=== PATIENT | male | born 1945 | race Caucasian/White ===

== ENCOUNTER 2018-10-09 20:30 | Outpatient (CLI) | payer MEDICARE | END 2018-10-09 20:31 | disposition home or self-care (01) | LOC: SLEEPLAB 20:30 | PROVIDERS: ATTEND Internal Medicine | DX: G47.33 Obstructive sleep apnea (adult) (pediatric) (principal); G47.61 Periodic limb movement disorder | CPT/HCPCS: 95811 ==

== ENCOUNTER 2018-11-07 22:35 | Observation (INO) | payer MEDICARE, OTHER ==
[2018-11-07 23:06] LABS: #Basophils 0.1 thou/uL (0.0-0.2); #Eosinphils 0.1 thou/uL (0.0-0.7); #Monocytes 0.8 thou/uL (0.11-0.59); #Neutrophils 4.8 thou/uL (1.40-6.50); %Basophils 0.9 % (0.0-1.0); %Eosinophils 1.2 % (0.0-10.0); %Lymphocytes 26.2 % (21.0-51.0); %Neutrophils 61.7 % (42.0-75.0); Hemoglobin 15.2 g/dL (14.0-18.0); Mean Platelet Volume 8.7 fL (7.4-10.4); Platelet Count 209 thou/uL (130-400); RBC Distribution Width 12.4 % (11.5-14.5); Red Blood Cell (RBC) Count 4.73 mill/uL (4.70-6.10); White Blood Cell (WBC) Count 7.7 thou/uL (4.8-10.8)
[2018-11-07 23:29] LABS: ALT (SGPT) 20 U/L (8-55); AST (SGOT) 27 U/L (5-34); Alkaline Phosphatase 53 U/L (40-150); Anion Gap 13 mmol/L (10-20); BUN (Urea Nitrogen) 13 mg/dL (8.4-25.7); Calc. Creatinine Clearance 0 mL/min (70-130); Carbon Dioxide 25 mmol/L (23-31); Chloride 105 mmol/L (98-107); Estimated GFR-MDRD 68; Globulin 2.7 g/dL (2.4-3.5); Glucose 99 mg/dL (83-110); Potassium 4.5 mmol/L (3.5-5.1); Protein, Total 6.7 g/dL (5.8-8.1); Sodium 138 mmol/L (136-145)
[2018-11-08] MEDS ORDERED: Acetaminophen 325 MG TAB PO PRN (02:29)
[2018-11-08] MEDS ORDERED: Zolpidem Tartrate 5 MG TAB PO PRN (02:29)
[2018-11-08 02:56] LABS: Troponin I Less than 0.010 ng/mL (< 0.028)
[2018-11-08 05:30] LABS: Anion Gap 9 mmol/L (10-20); BUN (Urea Nitrogen) 15 mg/dL (8.4-25.7); Calc. Creatinine Clearance 0 mL/min (70-130); Calcium 8.4 mg/dL (7.8-10.44); Carbon Dioxide 25 mmol/L (23-31); Chloride 106 mmol/L (98-107); Estimated GFR-MDRD 83; Glucose 91 mg/dL (83-110); Potassium 3.9 mmol/L (3.5-5.1); Sodium 136 mmol/L (136-145)
[2018-11-08 05:32] LABS: Hemoglobin 13.9 g/dL (14.0-18.0); Hypochromia SLIGHT = 6-15 cells (100X) (0-5/hpf); Lymphocytes 25 % (21-51); MDiff Complete? YES; Mean Corpuscular HGB CONC 33.9 g/dL (32.0-36.0); Mean Corpuscular Hemoglobin 32.8 pg (27.0-31.0); Mean Corpuscular Volume 96.7 fL (78.0-98.0); Mean Platelet Volume 8.9 fL (7.4-10.4); Monocytes 3 % (0-10); Neutrophil 61 % (42-75); Platelet Count 188 thou/uL (130-400); Platelet Morphology Comment Appears Adequate; RBC Distribution Width 12.2 % (11.5-14.5); Reactive Lymphocytes 11 % (0-10); Red Blood Cell (RBC) Count 4.25 mill/uL (4.70-6.10)
[2018-11-08 05:33] LABS: Troponin I Less than 0.010 ng/mL (< 0.028)
[2018-11-08] MEDS ORDERED: Famotidine 20 MG TAB ONE (07:38)
[2018-11-08] MEDS ORDERED: Aspirin Chewable 81 MG TAB ONE (07:38)
[2018-11-08] MEDS ORDERED: Tamsulosin HCl 0.4 MG CAP PO SCH (09:00)
[2018-11-08] MEDS ORDERED: Famotidine/PF 20 mg/2ml Vial SLOW IVP SCH (09:00)
[2018-11-08] MEDS ORDERED: Aspirin 81 mg Enteric Coated Tablet PO SCH (09:00)
[2018-11-08] MEDS ORDERED: Famotidine 20 MG TAB PO SCH (09:00)
[2018-11-08] MEDS ORDERED: Multivit, Therapeutic 1 TAB PO SCH (09:00)
[2018-11-08 11:23] VITALS: BP 161/98; TEMP 97.7
--- NOTE | 2018-11-08 20:57 | HP ---
CHIEF COMPLAINT: Transfer for atrial flutter. HISTORY OF PRESENT ILLNESS: This is a 72-year-old male with past medical history of enlarged prostate, presenting with palpitations and shortness of breath. Per the patient, he has been having history of palpitations and dizziness in the past. This happens every once in a while within the year. He sees Dr. Schuster who is his rod tape operator and they had been trying to find out what is causing his palpitations and shortness of breath. Per the patient, he was advised that any time when he starts feeling dizziness and palpitations, he should go to the ED to be evaluated, so that he can be able to get an EKG to capture the rhythm. So in the last few hours prior to his admission, the patient was having dizziness, shortness of breath, and therefore he went to [facility] where EKG was done and showed atrial flutter. At that point, the patient was transferred to the hospital to be evaluated. In the hospital, the patient's EKG is sinus. At this point, the patient states that he does not have any fever, chills, nausea, vomiting, headaches, chest pain, palpitation, abdominal pain, nausea, vomiting, constipation, or diarrhea. REVIEW OF SYSTEMS: All systems were reviewed and are negative. PAST MEDICAL HISTORY: Enlarged prostate. FAMILY HISTORY: Reviewed and noncontributory to this visit. PAST SURGICAL HISTORY: Back surgery, sinus surgery, urethral reconstruction, right knee repair, and carpal tunnel surgery. PSYCHIATRIC HISTORY: The patient does not have any psych history. SOCIAL HISTORY: The patient drinks occasionally. The patient denies any illicit drug use and the patient denies any smoking history. The patient lives at home with the . ALLERGIES: THE PATIENT IS ALLERGIC TO CIPROFLOXACIN AND SULFONAMIDES. CURRENT MEDICATIONS: The patient takes Flomax 0.4 mg and aspirin 81 mg. PHYSICAL EXAMINATION: VITAL SIGNS: The patient's blood pressure is 123/102, pulse of 67, respiratory rate of 18, temperature of 97.9, and oxygen saturation of 97% on room air. GENERAL: The patient is alert and oriented x3, lying in bed comfortably. Does not appear to be in any acute distress. HEENT: Normocephalic, atraumatic. Pupils are equally round and reactive to light. Extraocular movements are intact. No scleral icterus. No conjunctival pallor. NECK: Full range of motion. Trachea is midline. LUNGS: Clear to auscultation bilaterally. No wheezing, no rales, no rhonchi appreciated. CARDIAC: Positive S1 and S2. Regular rate and rhythm. No murmurs, no gallops, no rubs appreciated. ABDOMEN: Soft, nontender, and nondistended. Positive bowel sounds in all quadrants. EXTREMITIES: The patient has 5/5 upper extremity strength and 5/5 lower extremity strength. No edema noted. NEUROLOGIC: Cranial nerves 2 through 12 grossly intact. No neurologic deficits noted. SKIN: Warm, dry, and intact. PSYCH: Normal affect. Alert and oriented x3. DIAGNOSTIC DATA: EKG shows normal sinus rhythm with a rate of 66. LABORATORY DATA: WBC 7.7, hemoglobin is 15.2, hematocrit is 45.9, and platelet count is 209. Sodium is 138, potassium is 4.5, chloride is 105, carbon dioxide of 25, BUN is 13, creatinine is 1.07. Troponin is less than 0.010 x 3. TSH is 1.7. ASSESSMENT AND PLAN: This is a 72-year-old male being admitted for : 1. Palpitations and shortness of breath, likely due to arrhythmias. The patient was found to be in flutter when the patient went to [facility]. The patient has been transferred here to be further evaluated by rod tape operator. At this point, we have consulted Cardiology. We will follow up with their recommendations. We will continue the patient on aspirin. We will continue the patient on home medications. 2. BPH. We will continue the patient on Flomax. 3. Deep venous thrombosis and gastrointestinal prophylaxis. Job ID: [id number]
--- NOTE | 2018-11-10 10:33 | DIS ---
DATE OF ADMISSION: 11/07/2018 DATE OF DISCHARGE: 11/08/2018 PRIMARY CARE PHYSICIAN: Dr. Luciana Vigil. PRIMARY PERIODONTAL ASSISTANT: Dr. Schuster. DISCHARGE DIAGNOSES: 1. One episode of atrial flutter, resolved with one dose of IV Cardizem. 2. History of benign prostatic hyperplasia. DISCHARGE MEDICATIONS: 1. Lopressor 12.5 mg p.o. b.i.d. 2. Aspirin 81 mg daily. 3. Resume home medication of Flomax daily. HISTORY OF PRESENT ILLNESS AND SHORT HOSPITAL COURSE: Mr. Treviño was admitted earlier this morning by my colleague, Dr. Mcfarlane. H and P is not available yet as it has not been transcribed. In brief, he was admitted for palpitation and was found to have an episode of atrial flutter. He received one dose of Cardizem, which converted him to sinus rhythm. He was monitored several hours and was admitted initially under observation status for same. He was seen and examined by myself in the emergency room while he was on ER hernandez waiting for room assignment. His heart rate has remained in the 60s to 70s with blood pressure systolic in the 160s, diastolic in 90s. Echocardiogram has been done and at this time, the patient does not want to stay in the hospital anymore. They are in close followup with his own green chain offbearer, Dr. Schuster. They will see Dr. Schuster a day from tomorrow as an outpatient appointment. At this time on my examination, he is hemodynamically stable and is maintaining sinus rhythm and will be discharged. He has undergone extensive evaluation including a CT angio of the chest, which was negative for PE. I have briefly discussed this case briefly with the director transportation, Dr. Dozier over the phone and have referred him to electrophysiology as an outpatient. He was also given prescription for Lopressor twice a day at low dose and he is instructed to monitor his heart rate and blood pressure for the next few days while he is on this medicine. He will see Dr. Schuster in the next 48 hours or will come back to the emergency room if his symptoms reoccurred. He is also instructed to start taking a baby aspirin on a daily basis. His CHADS VASC 2 score is 1 based on his age, but otherwise he has no other risk factors on the scoring scale. He will be discharged. Please see admission history and physical once available. Serial cardiac enzymes were trended and were negative x3. Job ID: [id number]
== END 2018-11-08 12:37 | disposition home or self-care (01) ==
LOC: ERS 22:35 → ERHOLD 23:29
PROVIDERS: ADMIT Internal Medicine; ATTEND Internal Medicine
DX: I48.92 Unspecified atrial flutter (principal); N40.0 Benign prostatic hyperplasia without lower urinary tract symptoms; Z79.82 Long term (current) use of aspirin; Z79.899 Other long term (current) drug therapy; Z88.1 Allergy status to other antibiotic agents; Z88.2 Allergy status to sulfonamides
CPT/HCPCS: 80048; 84484 ×3; 85025; 93005; 93306; 99285; G0378; 36415; 84443; 94760

== ENCOUNTER 2018-12-08 09:36 | Outpatient (CLI) | payer MEDICARE ==
[2018-12-08] MEDS ORDERED: Gadobenate Dimeglumine 529 MG/1 ML (20ML VIAL) ONE (13:17)
--- NOTE | 2018-12-08 16:06 | MRI ---
PRE AND POSTCONTARST ENHANCED MRI IMAGES LUMBAR SPINE: HISTORY: Spondylosis without myelopathy. Bilateral leg pain. FINDINGS: Multiplanar, multisequence pre- and postcontrast enhanced MRI images lumbar spine performed. For the purposes of this dictation, the last freely mobile vertebral body will be considered to be th e L5 vertebral body. All other vertebral bodies are numbered according to this. The patient has a transitional S1 vertebral body. T12-L1: Unremarkable. L1-2: Disk desiccation is seen. There is a mild broad-based disk bulge with bilateral facet and lig amentum flavum hypertrophy. This results in minimal central and lateral recess stenosis. Mild bilat eral neural foraminal narrowing seen. L2-3: Disk desiccation was seen. There is a broad-based disk bulge with bilateral facet hypertrophy . This results in a moderate degree of central and lateral recess stenosis. Previously noted right L2-3 paracentral disk protrusion is less pronounced on today's exam. The right L2-3 lateral recess a lso demonstrates less severe stenosis compared to the previous exam. L3-4: Disk desiccation is seen. There is a broad-based disk bulge with bilateral facet hypertrophy. Minimal central and lateral recess stenosis seen. There is moderate bilateral neural foraminal amaury rowing seen due to facet hypertrophy. L4-5: Disk desiccation is seen. There is a broad-based disk bulge with bilateral facet hypertrophy. There are some adhesions of the intrathecal nerve roots concerning for intrathecal fibrosis. There is moderate bilateral neural foraminal narrowing seen. There is an annular fissure seen in the post erior aspect of the annulus fibrosis at L4-5. L5-S1: Disk desiccation is seen. There is a broad-based disk bulge with bilateral facet hypertrophy . Central disk protrusion is unchanged since the previous comparison exam. There is moderate to sev ere bilateral neural foraminal narrowing seen. IMPRESSION: Decreased right L2-3 paracentral disk protrusion. No other significant interval change is seen. Int rathecal adhesions compatible with intrathecal fibrosis is present. POS: REBECCA
== END 2018-12-08 09:37 | disposition home or self-care (01) ==
LOC: TBSIIMAG 09:36
PROVIDERS: ATTEND Neurological Surgery
DX: M47.816 Spondylosis without myelopathy or radiculopathy, lumbar region (principal); M51.26 Other intervertebral disc displacement, lumbar region
CPT/HCPCS: 72158; A9577

== ENCOUNTER 2019-03-02 10:01 | Outpatient (CLI) | payer MEDICARE ==
--- NOTE | 2019-03-02 12:18 | RAD ---
CERVICAL SPINE 3 VIEWS: Date: 03/02/19 HISTORY: M50.2, cervical disc disorder, chronic neck pain with numbness down both arms for years. FINDINGS: Multilevel disc osteophytosis changes are noted with facet arthrosis changes. No abnormal translation between flexion and extension. No prevertebral soft tissue swelling. IMPRESSION: Cervical spondylosis. No abnormal translation. POS: C
--- NOTE | 2019-03-02 13:01 | MRI ---
MRI cervical spine without contrast: 03/02/2019 COMPARISON: 11/08/2016 HISTORY: Chronic neck pain with bilateral upper extremity numbness/radiculopathy TECHNIQUE: Multiplanar multisequence MR imaging of the cervical spine obtained without contrast FINDINGS: The sagittal STIR imaging demonstrates increased signal intensity within the C4-5 intervert ebral disc, new when compared to the prior exam. Adjacent endplates are well-defined and there is no edema within the adjacent vertebral bodies. Findings suggest extensive annular tear with associate d edema involving the peripheral and central aspect of the intervertebral disc. Cervical vertebral body height and alignment appears unremarkable. C2-3: Mild bilateral facet and uncovertebral osteophyte formation. No significant central canal or ne ural foraminal stenosis. No significant interval change. C3-4: There is disc space narrowing and disc desiccation with mild disc bulge and small left paracent ral disc osteophyte complex. Bilateral facet and uncovertebral osteophyte formation, left greater than right, not significantly changed. Stable mild central canal stenosis, moderate/severe left neura l foraminal stenosis, and mild/moderate right neural foraminal stenosis. C4-5: Disc space narrowing and disc bulge. Effacement of ventral thecal sac with moderate central can al stenosis. Facet and uncovertebral osteophyte formation noted bilaterally, left greater than right. Mild right and moderate left neural foraminal stenosis, not significantly changed. C5-6: Disc space narrowing and disc desiccation with disc bulge effacing the ventral thecal sac and a butting the ventral aspect of the cord with stable moderate central canal stenosis. Bilateral facet and uncovertebral osteophyte formation, right greater than left. Moderate/severe right neural foramin al stenosis and moderate left neural foraminal stenosis. C6-7: There is disc space narrowing and disc desiccation with anterior osteophyte formation and mild disc bulge. This partially effaces the ventral thecal sac and causes mild central canal stenosis. Bilateral facet and uncovertebral osteophyte formation with moderate bilateral neural foraminal steno sis, not significantly changed. C7-T1: There is disc space narrowing, disc desiccation, and mild disc bulge with no significant centr al canal stenosis. Bilateral facet and uncovertebral osteophyte formation with mild bilateral neural foraminal stenosis. No focal area of abnormal signal intensity is identified within the cervical cord. No suspicious foca l osseous marrow abnormality. IMPRESSION: Significant multilevel cervical spine degenerative change as detailed above.
--- NOTE | 2019-03-02 13:32 | MRI ---
MR OF THE LEFT KNEE WITHOUT CONTRAST INDICATION: Left knee pain after being kicked in the left knee by cow TECHNIQUE: Axial and coronal PD fat sat, sagittal T2 fat sat, sagittal PD turbo spin echo and T1 rudy nal images were obtained of the left knee. COMPARISON: None. FINDINGS: Joint effusion: Mild-sized joint effusion Semimembranosus-medial gastrocnemius popliteal cyst: Small sized Faust's cyst. Ligaments: There is a grade 2 MCL sprain involving the anterior aspect of the proximal MCL. There is mucoid degeneration of the ACL. The PCL and LCLC are intact. Extensor mechanism: Intact. Menisci: There is a horizontally oriented tear involving the body posterior horn of the lateral menis cus. There is a horizontally oriented tear involving the body of the medial meniscus. Articular cartilage: There is mild chondrosis involving the lateral femoral tibial compartment. Small suspected full-thickness articular cartilage fissure is seen involving the posterior aspect of the lateral, measuring 1.3 mm on image 22 of series 8. There is a 1 mm full-thickness articular cartilage fissure involving the lateral tibial plateau on image 21 of series 7. There is a partial-thickness articular cartilage fissure involving the lateral patellar facet measuring 2.7 mm on image 19 of seri es 3. Osseous structures: There are small marginal osteophytes affecting the major compartments of the left knee. Popliteus and IT band: Normal. IMPRESSION: 1. Mild osteoarthrosis of the left knee. 2. Grade 2 proximal MCL sprain 3. Medial and lateral meniscal tears.
== END 2019-03-02 10:02 | disposition home or self-care (01) ==
LOC: BICMRI 10:01 → SCSMRI 10:02
PROVIDERS: ATTEND Neurological Surgery
DX: M25.562 Pain in left knee (principal); M47.12 Other spondylosis with myelopathy, cervical region; M50.021 Cervical disc disorder at C4-C5 level with myelopathy; M17.12 Unilateral primary osteoarthritis, left knee; S83.412A Sprain of medial collateral ligament of left knee, initial encounter; S83.242A Other tear of medial meniscus, current injury, left knee, initial encounter; S83.282A Other tear of lateral meniscus, current injury, left knee, initial encounter
CPT/HCPCS: 72040; 72141

== ENCOUNTER 2019-06-16 09:25 | Outpatient (CLI) | payer MEDICARE ==
[2019-06-16 11:21] LABS: Hemoglobin 15.3 g/dL (14.0-18.0); Mean Corpuscular HGB CONC 33.4 g/dL (32.0-36.0); Mean Corpuscular Volume 95.7 fL (78.0-98.0); Mean Platelet Volume 9.3 fL (7.4-10.4); Platelet Count 159 thou/uL (130-400); RBC Distribution Width 11.8 % (11.5-14.5); Red Blood Cell (RBC) Count 4.78 mill/uL (4.70-6.10); White Blood Cell (WBC) Count 6.1 thou/uL (4.8-10.8)
[2019-06-16 11:26] LABS: PTT 31.5 SEC (22.9-36.1)
== END 2019-06-16 09:26 | disposition home or self-care (01) ==
LOC: LABBT 09:25
PROVIDERS: ATTEND Neurological Surgery
DX: Z01.818 Encounter for other preprocedural examination (principal); M48.02 Spinal stenosis, cervical region; G95.9 Disease of spinal cord, unspecified
CPT/HCPCS: 85027; 85610; 85730; 93005; 93010

== ENCOUNTER 2019-06-19 05:49 | Inpatient (IN) | payer MEDICARE ==
--- NOTE | 2019-06-17 16:59 | HP ---
HISTORY OF PRESENT ILLNESS: Mr. Treviño is back in our office. He is a 73-year-old male. He would like to discuss his lumbar and cervical spine at this time. He does get numb hands and imbalance. He does not get much radicular pain in his arms at this time. He is having an ablation and is wanting to get off was the time to do this. He is in sinus rhythm and doing well. His feet have symmetric burning and numbness, but this is not changing much. REVIEW OF SYSTEMS: A 10-point review of systems has been completed and is negative other than stated in the above HPI. PAST MEDICAL HISTORY: Allergies, reflux, bladder tumors, and benign lumbar pain. ALLERGIES: LEVAQUIN, SULFA, AND CIPRO. PAST SURGICAL HISTORY: Urethral reconstruction, lumbar spine, septoplasty, tonsils and adenoids, right meniscectomy. FAMILY HISTORY: Father was , at 88. Mother is alive, currently 97. SOCIAL HISTORY: The patient is a nonsmoker. Denies alcohol or drug use. PHYSICAL EXAMINATION: CONSTITUTIONAL: The patient is alert and oriented x3. RESPIRATIONS: Normal work of breathing on room air. NEUROLOGIC: Gait and station, mild imbalance in tandem gait. Motor exam, no new weakness. Normal strength in deltoids, biceps, triceps, wrist extensors, finger extensions, and finger intrinsics. Sensory exam, left middle finger paresthesia, median side. Tinel's, left wrist. Carpal tunnel scar on the right wrist. Reflex exam; knee jerks normal, symmetric. No clonus. IMAGING DATA: MRI cervical spine stenosis at C3-C4, C4-C5, C5-C6, C6-C7. X-rays, no instability. ASSESSMENT AND PLAN: Cervical spinal disorder, stenosis with myelopathy. Dr. Londono has offered surgery, posterior laminectomy C3 through C7 without fusion. The patient states that he understands the risks and is willing to proceed with surgery. Job ID: [id number]
[2019-06-19] MEDS ORDERED: Thrombin 5000 UNITS/5 ML VIAL ONE (06:18)
[2019-06-19] MEDS ORDERED: Bupivacaine HCl 0.5%/Epinephrine 1:200,000/PF 30 ml Vial ONE (06:18)
[2019-06-19] MEDS ORDERED: Sodium Chloride 0.9% 10 ML ONE ×2 (06:18→08:28)
[2019-06-19] MEDS ORDERED: Bacitracin Zinc Ointment 30 gm TUBE ONE (06:23)
[2019-06-19] MEDS ORDERED: Famotidine/PF 20 mg/2ml Vial ONE (06:52)
[2019-06-19] MEDS ORDERED: Fentanyl 100 MCG/2 ML VIAL ONE ×3 (07:00→10:22)
[2019-06-19] MEDS ORDERED: TESTOSTERONE TOP SCH (09:00)
[2019-06-19] MEDS ORDERED: Promethazine HCl 25 MG/ML VIAL IM PRN ×2 (09:30→10:10)
[2019-06-19] MEDS ORDERED: PACU-Morphine 4MG/ML VIAL SLOW IVP PRN (09:30)
[2019-06-19] MEDS ORDERED: Promethazine HCl 25 MG/ML VIAL SLOW IVP PRN (09:30)
[2019-06-19] MEDS ORDERED: Meperidine HCl/PF 25 MG/ML VIAL SLOW IVP PRN (09:30)
[2019-06-19] MEDS ORDERED: Acetaminophen/Codeine 30-300mg Tablet PO PRN (10:10)
[2019-06-19] MEDS ORDERED: diphenhydrAMINE 50 MG/ML VIAL IVP PRN (10:10)
[2019-06-19] MEDS ORDERED: Mag-Al 1200 mg/1200 mg/30 ML UDCUP PO PRN (10:10)
[2019-06-19] MEDS ORDERED: Acetaminophen 325 MG TAB PO PRN (10:10)
[2019-06-19] MEDS ORDERED: Promethazine 25 MG TAB PO PRN (10:10)
[2019-06-19] MEDS ORDERED: Milk Of Magnesia 30 ML UDCUP PO PRN (10:10)
[2019-06-19] MEDS ORDERED: Morphine 2 MG/ML SYRINGE SLOW IVP PRN (10:10)
[2019-06-19] MEDS ORDERED: Prochlorperazine 10 MG/2 ML VIAL IM PRN (10:10)
[2019-06-19] MEDS ORDERED: diphenhydrAMINE 25 MG CAP PO PRN (10:10)
[2019-06-19] MEDS ORDERED: Ondansetron PF 4 MG/2 ML Vial IVP PRN (10:10)
[2019-06-19] MEDS ORDERED: HYDROmorphone 0.5 MG/0.5 ML SYRINGE ONE (10:22)
[2019-06-19] MEDS ORDERED: Morphine 4 MG/ML VIAL ONE (10:31)
[2019-06-19] MEDS ORDERED: Morphine 2 MG/ML SYRINGE ONE (10:57)
[2019-06-19] MEDS: Sodium Chloride 0.9% 1,000 ML IV SCH (13:32)
[2019-06-19] MEDS: tiZANidine HCl 4 MG TAB PO PRN ×2 (13:40→19:28)
[2019-06-19] MEDS: Acetaminophen/Codeine 30-300mg Tablet PO PRN ×3 (13:41→22:03)
[2019-06-19] MEDS: CEFAZOLIN 2 GM in Premix Bag 1 BAG IVPB SCH ×2 (15:58→22:04)
--- NOTE | 2019-06-19 16:01 | OP ---
DATE OF PROCEDURE: 06/19/2019 BLIND HANGER: Marely Valencia PA-C. PREOPERATIVE INDICATION: Prevent neurological deterioration. PREOPERATIVE DIAGNOSIS: Multilevel cervical stenosis with myelopathy. POSTOPERATIVE DIAGNOSIS: Multilevel cervical stenosis with myelopathy. OPERATIVE PROCEDURE: Decompressive laminectomy with some medial facetectomy and foraminotomy; C3, C4, C5, C6, C7. PREOPERATIVE MEDICATION: Ancef 2 g IV. DRAIN NUMBER: Zero. DRAIN TYPE: None. DESCRIPTION OF PROCEDURE: The patient was brought to the operating room. General endotracheal anesthesia was induced. The patient was carefully positioned prone with his head immobilized by Villasenor pin and evp head of [employer] experience strategy and his chest and hips supported by gel-filled chest rolls. A lateral fluoro radiograph was used to plan our incision. The back of the neck was sterilely prepped and draped. We opened the midline incision with a 10 blade knife and controlled bleeding with bipolar and monopolar cautery. We used monopolar cautery to dissect to the ligamentum nuchae. We incised this ligament in the midline and reflected the paraspinal muscles off the spinous process and lamina of C3, C4, C5, C6, and C7. A self-retaining retractor was placed and a lateral fluoro radiograph confirmed the levels upon which we were operating. We brought a high-speed drill into the field. Using a 5 mm jenny bur, we thinned the lamina on each side of C3, C4, C5, C6, and the superior portion of C7. Using a 2 mm Kerrison rongeur, we the lamina from the lateral mass on the left and the right and removed all of the lamina as a single unit. We controlled epidural bleeding with gentle bipolar cautery. Using 2 mm Kerrison rongeur, we removed the superior 7 mm of the C7 lamina. We waxed all the bone edges. Using Kerrison rongeurs, we widened our laminectomy defect until we were lateral to the dura on both sides. I placed a micro ball probe out each neural foramen and decompressed as necessary. We controlled epidural bleeding with gentle bipolar cautery and small pledgets of Gelfoam. Hemostasis was excellent thereafter. We infused local anesthetic in the paraspinal muscles. We irrigated copiously with bacitracin irrigation. We closed the wound in anatomical layers. We applied a sterile dressing. This was a clean case, no contamination. Job ID: [id number]
[2019-06-19] MEDS ORDERED: PHENYLEPHRINE-NS 100 MCG/ML 10 ML SYRINGE ONE (16:42)
[2019-06-19] MEDS ORDERED: Rocuronium Bromide 10 MG/ML (10ML VIAL) ONE (16:42)
[2019-06-19] MEDS ORDERED: Ketorolac Tromethamine 30 MG/ML VIAL ONE (16:42)
[2019-06-19] MEDS ORDERED: Glycopyrrolate 0.2 MG/ML 5 ML SYRINGE ONE (16:42)
[2019-06-19] MEDS ORDERED: PROPOFOL 200 MG/20 ML VIAL ONE (16:42)
[2019-06-19] MEDS ORDERED: Dexamethasone 20 MG/5 ML VIAL ONE (16:42)
[2019-06-19] MEDS ORDERED: Lidocaine 1% PF 5 ML VIAL ONE (16:42)
[2019-06-19] MEDS ORDERED: Ondansetron PF 4 MG/2 ML Vial ONE (16:42)
[2019-06-19] MEDS ORDERED: ePHEDrine 50 MG/ML VIAL ONE (16:42)
[2019-06-19] MEDS ORDERED: Lidocaine 2% 11 ML SYR TOP SCH (20:15)
[2019-06-19] MEDS ORDERED: traMADol HCl 50 MG TAB PO PRN (21:44)
[2019-06-19] MEDS: Famotidine 20 MG TAB PO SCH (22:03)
[2019-06-19] MEDS: Cyclobenzaprine 10 MG TAB PO PRN (22:03)
[2019-06-19] MEDS: Morphine 4 MG/ML VIAL SLOW IVP PRN (22:12)
[2019-06-19] MEDS: traMADol HCl 50 MG TAB PO PRN (23:14)
[2019-06-20] MEDS: Sodium Chloride 0.9% 1,000 ML IV SCH ×2 (00:25→17:53)
[2019-06-20] MEDS: traMADol HCl 50 MG TAB PO PRN ×3 (03:03→14:00)
[2019-06-20] MEDS: Cyclobenzaprine 10 MG TAB PO PRN ×3 (03:29→19:31)
[2019-06-20] MEDS: Morphine 4 MG/ML VIAL SLOW IVP PRN ×4 (03:30→13:59)
--- NOTE | 2019-06-20 08:06 | PRG ---
DATE OF SERVICE: 06/20/2019 I saw Mr. Treviño one day after his C3-C7 decompressive laminectomy. He attempted to get out of bed yesterday. He has had severe spasm and numbness in his extremities, and he had remained in bed. Overnight, his vitals have been stable and he is feeling better this morning. His spasm is under relatively good control when I am seeing him now. He has good intrinsic hand strength in both upper extremities and I do not find any new deficits. I asked Mr. Treviño to continue mobilization. It is going to be very important that he sits for an hour or so before he tries to stand, and that he stands for a few minutes before he tries to walk, and that all of this is done with assistance. He may be one of the patient's were autoregulation in the cervical spinal cord has been affected by chronic compression, and that any drops in blood pressure will be manifested as neurological symptoms on changing position. The patient's usually get over this within a day or two from surgery, but he should have observation during this period. We will consult Physical Therapy. If he is a candidate for inpatient rehabilitation, he might be able to be transferred there, but I think he is going to be markedly better today than yesterday. Job ID: [id number] MTDD
[2019-06-20] MEDS ORDERED: Tamsulosin HCl 0.4 MG CAP PO SCH ×2 (09:00)
[2019-06-20] MEDS: Famotidine 20 MG TAB PO SCH ×2 (09:14→19:31)
[2019-06-20] MEDS: Baclofen 10 MG TAB PO PRN (13:02)
[2019-06-20] MEDS ORDERED: diphenhydrAMINE 50 MG/ML VIAL IVP PRN (15:27)
[2019-06-20] MEDS ORDERED: Naloxone HCl 0.4 mg/ml Vial IV PRN (15:27)
[2019-06-20] MEDS ORDERED: Promethazine HCl 25 MG/ML VIAL IM PRN (15:27)
[2019-06-20] MEDS ORDERED: Ondansetron PF 4 MG/2 ML Vial IVP PRN (15:27)
[2019-06-20] MEDS ORDERED: Zolpidem Tartrate 5 MG TAB PO PRN (15:27)
[2019-06-20] MEDS ORDERED: diphenhydrAMINE 25 MG CAP PO PRN (15:27)
[2019-06-20] MEDS ORDERED: diphenhydrAMINE 50 MG/ML VIAL IM PRN (15:27)
[2019-06-20] MEDS ORDERED: Communication Order-Pharmacy FS SCH (15:30)
[2019-06-20] MEDS: Morphine 4 MG/ML VIAL ONE ×2 (17:05→17:12)
[2019-06-20] MEDS: fentaNYL Citrate/PF 2,000 MCG in Sodium Chloride 0.9% 60 ML IV PRN (17:10)
[2019-06-20] MEDS ORDERED: Morphine 4 MG/ML VIAL SLOW IVP SCH (17:45)
[2019-06-20] MEDS: Cefprozil 250 MG TAB PO SCH (19:31)
[2019-06-20] MEDS: Finasteride 5 MG TAB PO SCH (19:31)
[2019-06-20] MEDS: Tamsulosin HCl 0.4 MG CAP PO SCH (19:31)
[2019-06-20] MEDS ORDERED: CEFPROZIL 500 MG PO SCH (21:00)
--- NOTE | 2019-06-20 22:12 | CON ---
DATE OF CONSULTATION: CHIEF COMPLAINT: 1. Postoperative urinary retention following cervical posterior laminectomy. 2. History of benign prostatic hypertrophy with obstruction. 3. History of urethral stricture disease, status post urethroplasty by Dr. Peter Azar, [facility]. HISTORY OF PRESENT ILLNESS: Mr. 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 Ansley Londono. The patient is in the postoperative state at this point. I was consulted overnight due to urinary retention in the postoperative state. I did direct nursing staff to place a 16-Kazakh coude catheter with Lidoject lubricant and this went uneventfully with placement of a Solano catheter and return of about 1500 mL of urine. There has been no gross bleeding overnight. The patient is not having any other difficulties. The patient self reports a longstanding history of benign prostatic hypertrophy issues as well as his urethral stricture disease history. He has noticed some slowing of his stream over the last few months and he is on Flomax alone for treatment at the present time. The patient is complaining of severe neck pain, for which he has not received adequate pain relief by his report. My understanding is a FLUE BLOWER pump is in process and I am going to go ahead and order a 4 mg dose of morphine for him for that problem. REVIEW OF SYSTEMS: I was able to get a limited review of systems from the patient primarily regarding his urinary system due to his pain issues. I did not completely address the review of systems due to his difficulty with pain. The patient finds talking difficult with his severe neck pain. PAST MEDICAL HISTORY: 1. Urethral stricture disease. 2. Prostatic hyperplasia with obstruction. 3. Benign lumbar pain. ALLERGIES: THE PATIENT REPORTS ALLERGIES TO LEVAQUIN, CIPRO AND OTHER FLUOROQUINOLONES WELL SULFA BASED DRUGS. PAST SURGICAL HISTORY: 1. Urethroplasty. 2. Lumbar spine surgery. 3. Septoplasty. 4. Tonsillectomy and adenoids. 5. Right meniscectomy. FAMILY MEDICAL HISTORY: The patient's father is passing away at age 88. The patient's mother is alive, currently age 97. 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 He is a nonsmoker. He denies alcohol or drug use. His daughter is a principal of [employer] in [place]. PHYSICAL EXAMINATION: VITAL SIGNS: The patient's current temperature is 98.1, pulse 85, respirations 16, O2 saturation on room air is 96%, blood pressure is 137/67. GENERAL: This is an awake, alert, white male, who appears to be in some pain. NECK: He is not turning his head or neck at the present time due to what he reports are spasms in his neck. LUNGS: Clear to auscultation bilaterally. CARDIAC: There is a regular rate and rhythm without murmur, rub, or gallop. ABDOMEN: Soft, moderately obese, and nontender. There is no suprapubic fullness on examination today. GENITOURINARY: Phallus appears normal. There is an indwelling Solano catheter 16-Kazakh in size. It was secured to the patient's left leg using a StatLock device. Urine draining from the bladder is clear in coloration. RECTAL: Digital rectal examination is deferred due to the patient's intense neck pain complaints and inability to move in the bed. EXTREMITIES: Appear within normal limits. LABORATORY STUDIES: None available for today. RADIOLOGIC STUDIES: No new radiologic studies have been performed in the last 24 hours. ASSESSMENT AND PLAN: 1. Benign prostatic hypertrophy with obstruction. It is unclear if the patient has had a recent biopsy. I am presuming the patient has had a negative biopsy in the past based of his history, the patient should be placed on maximal medical therapy for benign prostatic hypertrophy to get his catheter out of him. We are recommending that he continue on his Flomax at 0.4 mg, but increase the dose to twice daily. In addition, we are recommending finasteride at 5 mg per day and a course of Cefzil for possible prostatitis. I will have the patient present to Dr. Azar's office for the voiding trial. Alternatively, the patient may follow up in my office if a visit with Dr. Azar is not possible. The patient's obstructive issues seem to relate primarily around the prostate gland, although the previously strictured area of his urethra could also be an issue in play. Over 70 minutes of initial consultation and assessment time was spent in evaluation and assessment of this patient today. Job ID: [id number] MTDD
[2019-06-21] MEDS: Sodium Chloride 0.9% 1,000 ML IV SCH ×2 (03:41→15:53)
[2019-06-21] MEDS: Cyclobenzaprine 10 MG TAB PO PRN ×3 (04:33→17:46)
[2019-06-21] MEDS: Baclofen 10 MG TAB PO PRN ×2 (07:55→21:10)
[2019-06-21] MEDS: Tamsulosin HCl 0.4 MG CAP PO SCH ×2 (07:56→21:10)
[2019-06-21] MEDS: Cefprozil 250 MG TAB PO SCH ×2 (07:56→21:10)
[2019-06-21] MEDS: Famotidine 20 MG TAB PO SCH ×2 (07:56→21:10)
--- NOTE | 2019-06-21 09:51 | PRG ---
DATE OF SERVICE: 06/21/2019 Mr. Treviño is 2 days out from a cervical laminectomy without fusion. He complains of muscle spasm preventing him from sitting, standing, or walking. Spasm is getting worse as he mobilized in his bed, which is predictable. Overnight, the vitals have been stable. I do not see any fevers recorded. The most recent blood pressure is 133/73. Neurological function in the extremities is good. I see that we have muscle relaxants on board and the Pain Management Service is helping and that he gets to work with Physical Therapy today. He needs to get out of the bed, and he is to sit in a bedside chair during the day and I would strongly encourage him to ambulate with assistance of two people at least 5 times a day. This needs to start soon to prevent the spasm from getting worse. He understands that it is going to hurt the first few times, but improve later in the day. Job ID: [id number]
[2019-06-21] MEDS: Finasteride 5 MG TAB PO SCH (21:10)
[2019-06-22] MEDS: fentaNYL Citrate/PF 2,000 MCG in Sodium Chloride 0.9% 60 ML IV PRN (00:10)
[2019-06-22] MEDS: Cyclobenzaprine 10 MG TAB PO PRN ×2 (03:36→12:16)
[2019-06-22] MEDS: Sodium Chloride 0.9% 1,000 ML IV SCH ×2 (06:07→19:49)
[2019-06-22] MEDS: Baclofen 10 MG TAB PO PRN ×2 (06:35→17:56)
[2019-06-22] MEDS ORDERED: Diazepam 2 MG TAB PO PRN (07:07)
--- NOTE | 2019-06-22 07:45 | PRG ---
DATE OF SERVICE: 06/22/2019 I saw Andrew Treviño in his hospital room this morning. He does not look very comfortable. He has had muscle spasm issues since surgery and he is becoming more debilitating. He did get up and walk with therapy, which his family is happy about, but starting at 3:30 in the morning, he had some significant neck pain from surgery. On examination, I do not find any new neurological deficit. We are going to start a benzodiazepine for muscle spasm. We will start with a low dose and hopefully, keep him off the fentanyl if that is possible. This may have a more beneficial effect for him than the Flexeril and Zanaflex. He will continue to work with therapy. Job ID: [id number]
[2019-06-22] MEDS: Tamsulosin HCl 0.4 MG CAP PO SCH ×2 (09:12→19:55)
[2019-06-22] MEDS: Famotidine 20 MG TAB PO SCH ×2 (09:12→19:55)
[2019-06-22] MEDS: Cefprozil 250 MG TAB PO SCH ×2 (09:12→19:55)
[2019-06-22] MEDS: ALPRAZolam 0.5 MG TAB PO SCH ×2 (09:12→17:56)
[2019-06-22] MEDS: Diazepam 2 MG TAB PO PRN ×2 (09:54→21:04)
[2019-06-22] MEDS: Acetaminophen 500 MG TAB PO SCH ×2 (12:49→17:56)
[2019-06-22] MEDS: Morphine Sulfate 100 MG in Dextrose 5% in Water 98 ML IV SCH (15:43)
[2019-06-22] MEDS: Finasteride 5 MG TAB PO SCH (19:55)
[2019-06-23] MEDS: ALPRAZolam 0.5 MG TAB PO SCH ×3 (00:41→17:51)
[2019-06-23] MEDS: Acetaminophen 500 MG TAB PO SCH ×4 (00:41→17:51)
[2019-06-23] MEDS: Baclofen 10 MG TAB PO PRN ×2 (06:06→13:36)
--- NOTE | 2019-06-23 07:50 | PRG ---
DATE OF SERVICE: 06/23/2019 Mr. Treviño is starting his 4th day after surgery. Muscle spasms have been an issue since the operation, it is reminiscent of when he had severe muscle spasm after his lumbar spine surgery. He has been unable to participate much in care. However, since late yesterday afternoon with a switch from fentanyl to morphine, he has been feeling somewhat better. His vitals are stable. He has still good intrinsic hand function. His legs are working. We will make a slight change in increasing the Valium from 2 to 5 mg every 8 hours for muscle spasm. We will continue to watch him and keep him in the hospital until his pain is under better control. We will get an ultrasound of the lower extremities today. Job ID: [id number] MTDD
[2019-06-23] MEDS: Sodium Chloride 0.9% 1,000 ML IV SCH ×3 (08:37→23:28)
[2019-06-23] MEDS: Tamsulosin HCl 0.4 MG CAP PO SCH ×2 (08:42→20:39)
[2019-06-23] MEDS: Famotidine 20 MG TAB PO SCH ×2 (08:42→20:39)
[2019-06-23] MEDS: Cefprozil 250 MG TAB PO SCH ×2 (08:42→20:39)
[2019-06-23] MEDS: Diazepam 5 MG TAB PO PRN ×2 (08:42→17:52)
[2019-06-23] MEDS: Ketorolac Tromethamine 30 MG/ML VIAL IVP SCH ×2 (16:07→21:31)
--- NOTE | 2019-06-23 18:55 | ULT ---
VENOUS DUPLEX SONOGRAM BILATERAL LOWER EXTREMITY: 06/23/19 HISTORY: Bilateral leg pain and edema. Immobility. FINDINGS: Each common femoral vein and greater saphenous junction were evaluated along with each femoral, deep femoral, popliteal, and posterior tibial vein. There is good color and spectral Doppler flow, gilmar danish, and augmentation. IMPRESSION: No sonographic evidence of DVT within either lower extremity. POS: BST
[2019-06-23] MEDS: Finasteride 5 MG TAB PO SCH (20:39)
[2019-06-23] MEDS: Gabapentin 100 MG CAP PO SCH (20:39)
[2019-06-24] MEDS: Acetaminophen 500 MG TAB PO SCH ×5 (00:47→23:33)
[2019-06-24] MEDS: ALPRAZolam 0.5 MG TAB PO SCH ×4 (00:48→23:33)
[2019-06-24] MEDS: Ketorolac Tromethamine 30 MG/ML VIAL IVP SCH ×4 (04:13→21:19)
[2019-06-24] MEDS: Morphine Sulfate 100 MG in Dextrose 5% in Water 98 ML IV SCH ×2 (07:54→19:06)
[2019-06-24] MEDS: Baclofen 10 MG TAB PO PRN ×2 (08:55→19:03)
[2019-06-24] MEDS: Famotidine 20 MG TAB PO SCH ×2 (08:56→20:11)
[2019-06-24] MEDS: Gabapentin 100 MG CAP PO SCH ×2 (08:56→20:11)
[2019-06-24] MEDS: Cefprozil 250 MG TAB PO SCH ×2 (08:57→20:11)
[2019-06-24] MEDS: Tamsulosin HCl 0.4 MG CAP PO SCH ×2 (08:57→20:11)
[2019-06-24] MEDS: Milk Of Magnesia 30 ML UDCUP PO SCH ×2 (08:58→20:23)
[2019-06-24] MEDS: Sodium Chloride 0.9% 1,000 ML IV SCH (10:24)
--- NOTE | 2019-06-24 10:41 | PRG ---
DATE OF SERVICE: Mr. Treviño is working with physical therapy as I saw him in his room this morning. He is now standing at the bedside on his walker. He is taking a few steps with some assistance. He seems to have good strength in his hands and legs. Muscle spasm is an issue at the base of the neck and between the shoulder blades. He is making some progress over the last 24 to 48 hours with a new pain management regimen and some increase in the benzodiazepine dose. We will keep Mr. Treviño here as long as it is necessary to make him safe for activities of daily living or we can look into inpatient rehabilitation or swing bed. Family is happy with his progress this morning. Job ID: [id number]
[2019-06-24] MEDS: Diazepam 5 MG TAB PO PRN (19:05)
[2019-06-24] MEDS ORDERED: Dexamethasone 4 mg/ml Vial SLOW IVP SCH (20:00)
[2019-06-24] MEDS: Finasteride 5 MG TAB PO SCH (20:11)
[2019-06-25] MEDS: Sodium Chloride 0.9% 1,000 ML IV SCH ×2 (00:12→12:05)
[2019-06-25] MEDS: Ketorolac Tromethamine 30 MG/ML VIAL IVP SCH ×4 (03:35→21:01)
[2019-06-25] MEDS: Baclofen 10 MG TAB PO PRN (05:50)
[2019-06-25] MEDS: Acetaminophen 500 MG TAB PO SCH ×4 (05:50→23:20)
--- NOTE | 2019-06-25 06:56 | PRG ---
DATE OF SERVICE: 06/25/2019 Mr. Treviño had a better day yesterday. I saw him stand with physical therapy. He took a couple of walks and made it to the hallway. He was feeling good until about 6:30 in the evening yesterday and he had return of some muscle spasm. This made his sleep not as productive as it could have been otherwise. Once this debilitating postoperative muscle spasm wanes to the point where he can manage himself at home, then he can be discharged. If it takes inpatient rehabilitation, I think he is a great candidate for that, and arrangements could be made for a transfer there. Job ID: [id number]
[2019-06-25] MEDS: Cefprozil 250 MG TAB PO SCH ×2 (08:18→19:51)
[2019-06-25] MEDS: Milk Of Magnesia 30 ML UDCUP PO SCH ×2 (08:18→19:50)
[2019-06-25] MEDS: ALPRAZolam 0.5 MG TAB PO SCH (08:18)
[2019-06-25] MEDS: Tamsulosin HCl 0.4 MG CAP PO SCH ×2 (08:18→19:51)
[2019-06-25] MEDS: Famotidine 20 MG TAB PO SCH ×2 (08:18→19:51)
[2019-06-25] MEDS: Gabapentin 100 MG CAP PO SCH (08:18)
--- NOTE | 2019-06-25 09:16 | RAD ---
Portable upright frontal chest radiograph: 06/25/2019 COMPARISON: 11/07/2018 HISTORY: Fever FINDINGS: There is no pneumothorax, pleural fluid, focal consolidation, or alveolar edema. Heart and mediastinal contours are grossly unremarkable. IMPRESSION: No acute findings.
[2019-06-25 09:26] LABS: Bilirubin Negative (Negative); Blood, Urine 2+ (Negative); Clarity Turbid (Clear); Glucose, Urine (Dipstick) 150 mg/dL (Negative); Leukocyte 500 Leu/uL (Negative); Nitrite 1+ (Negative); Protein, Urine (Dipstick) 20 mg/dL (Neg-Trace); Squamous Epithelial None Seen HPF (0-3); Urobilinogen Normal mg/dL (Less than 2); WBC/HPF Greater than 50 HPF (0-3)
[2019-06-25 09:29] LABS: Bacteria/HPF 1+ HPF (None Seen)
[2019-06-25] MEDS ORDERED: Gabapentin 100 MG CAP PO SCH (10:45)
[2019-06-25] MEDS ORDERED: Morphine Sulfate 100 MG in Dextrose 5% in Water 98 ML IV SCH (10:45)
[2019-06-25] MEDS ORDERED: Baclofen 10 MG TAB PO SCH (11:00)
[2019-06-25] MEDS ORDERED: cefTRIAXone\\ROCEPHIN 1 GM in Sodium Chloride 0.9% 100 ML IVPB SCH (13:00)
[2019-06-25] MEDS: Baclofen 10 MG TAB PO SCH ×2 (14:11→21:00)
[2019-06-25] MEDS: Gabapentin 300 MG CAP PO SCH (19:51)
[2019-06-25] MEDS: Finasteride 5 MG TAB PO SCH (19:51)
--- NOTE | 2019-06-26 02:56 | CON ---
DATE OF CONSULTATION: 06/25/2019 REASON FOR CONSULTATION: 1. Postoperative urinary retention following cervical posterior laminectomy. 2. Benign prostatic hypertrophy with obstruction. 3. History of urethral stricture disease, status post urethroplasty by Dr. Azar in [place]. HISTORY OF PRESENT ILLNESS: Mr. Andrew Treviño is a very pleasant, 73-year-old white male, rancher and former energy broker, who presented for cervical laminectomy by Dr. Ansley Londono. Since I last saw him, he has had an indwelling catheter that was placed for retention of 1500 mL of urine removed and had a laboratory obtained about the same time immediately after the catheter was removed. This showed the presence of 1+ bacteria in his urine as well as white cells and red cells suggestive of urinary tract infection. There was nitrite positivity present. The patient has been doing reasonably well with the Solano but had a low grade fever over night and the Solano was removed. A UA had WBC, RBC, Nitrite, and Bacteria (which would all be common findings for a patient with an indwelling Solano). Based on this,patient's Cefzil, which is an oral cephalosporin was switched to ceftriaxone. Thepatient had a low-grade fever overnight as well. He is on maximal medical therapy at present time for BPH with obstruction. PHYSICAL EXAMINATION: HEAD, EYES, EARS, NOSE, AND THROAT: Extraocular movements are intact. Sclerae anicteric. The patient is a good historian, he has more range of motion of his neck than before that reports pain at different points. He has nonlabored breathing. He is on commode and is very uncomfortable with neck pain and constipation and retention today with the Solano out. Exam terminated due to patient discomfort. ASSESSMENT AND PLAN: 1. Ongoing urinary retention with recent Solano catheter removal. The patient is trying a number of different positions to urinate. At the present time, intermittent catheterization seems to be a reasonable option for the patient to try. He has constipation which may be making his symptoms worse. Once bowel function returns to normal, often times patients will begin to have normal voiding function. Hwe is experienced with CIC and I am recommending that for now. 2. Constipation. The patient will probably benefit from MiraLAX on a daily basis. 3. Concern for urinary tract infection. The abnormal urinalysis was obtained after removal of an indwelling Solano catheter, therefore makes all the results suspect. Job ID: [id number] [facility]
[2019-06-26] MEDS: Ketorolac Tromethamine 30 MG/ML VIAL IVP SCH ×2 (03:14→14:56)
[2019-06-26] MEDS: Sodium Chloride 0.9% 1,000 ML IV SCH ×2 (03:15→16:09)
[2019-06-26] MEDS: Baclofen 10 MG TAB PO SCH ×3 (05:04→21:01)
[2019-06-26] MEDS: Acetaminophen 500 MG TAB PO SCH (05:04)
--- NOTE | 2019-06-26 06:22 | PRG ---
DATE OF SERVICE: 06/26/2019 Mr. Treviño and his reports that he had a great day yesterday in comparison to previous days. He is more easily able to get up and walk in the hallways. The muscle spasm is still a significant issue. The catheter was removed yesterday and he had some urinary retention. Urology was consulted. There has been no fever since the catheter is removed. No new deficits on his neurological exam. Once Mr. Treviño is more independent with his activities of daily living, we can think about discharge. I do not think that is going to happen until Saturday, Saturday, or perhaps Saturday. Today's plan is for the bladder issue to be resolved with Urology. If an indwelling catheter is placed, then we will start some Mag citrate to get his bowels moving. He thinks that will make him feel better. Job ID: [id number]
[2019-06-26] MEDS ORDERED: Bisacodyl 10 MG SUPP PR SCH (08:15)
[2019-06-26] MEDS: Cefprozil 250 MG TAB PO SCH ×2 (08:39→21:00)
[2019-06-26] MEDS: Polyethylene Glycol 3350 17 GM Packet PO SCH (08:39)
[2019-06-26] MEDS: Milk Of Magnesia 30 ML UDCUP PO SCH ×2 (08:40→21:01)
[2019-06-26] MEDS: Famotidine 20 MG TAB PO SCH ×2 (08:40→21:00)
[2019-06-26] MEDS: Gabapentin 300 MG CAP PO SCH ×2 (08:40→21:00)
[2019-06-26] MEDS: Tamsulosin HCl 0.4 MG CAP PO SCH ×2 (08:40→21:01)
[2019-06-26 09:16] LABS: ALT (SGPT) 66 U/L (8-55); AST (SGOT) 80 U/L (5-34); Albumin 3.2 g/dL (3.4-4.8); Alkaline Phosphatase 74 U/L (40-150); Anion Gap 12 mmol/L (10-20); BUN (Urea Nitrogen) 19 mg/dL (8.4-25.7); Bilirubin, Total 0.5 mg/dL (0.2-1.2); Calc. Creatinine Clearance 96 mL/min (70-130); Calcium 8.7 mg/dL (7.8-10.44); Carbon Dioxide 24 mmol/L (23-31); Chloride 101 mmol/L (98-107); Estimated GFR-MDRD 86; Globulin 2.7 g/dL (2.4-3.5); Glucose 98 mg/dL (83-110); Potassium 3.5 mmol/L (3.5-5.1); Protein, Total 5.9 g/dL (5.8-8.1); Sodium 133 mmol/L (136-145)
[2019-06-26] MEDS ORDERED: Fentanyl 100 MCG/2 ML VIAL SLOW IVP PRN (11:15)
[2019-06-26] MEDS ORDERED: traMADol HCl 50 MG TAB PO PRN ×2 (11:15→11:16)
[2019-06-26] MEDS ORDERED: HYDROcodone/Acetaminophen 5/325 mg Tablet PO PRN (11:16)
[2019-06-26] MEDS: HYDROcodone/Acetaminophen 5/325 mg Tablet PO PRN ×2 (11:41→16:25)
[2019-06-26 14:25] LABS: Bilirubin Negative (Negative); Blood, Urine 1+ (Negative); Clarity Turbid (Clear); Glucose, Urine (Dipstick) Normal (Negative); Leukocyte 500 Leu/uL (Negative); Nitrite Negative (Negative); Protein, Urine (Dipstick) 50 mg/dL (Neg-Trace); Squamous Epithelial 0-3 HPF (0-3); Urobilinogen Normal mg/dL (Less than 2); WBC/HPF Greater than 50 HPF (0-3)
[2019-06-26 14:35] LABS: Bacteria/HPF 4+ HPF (None Seen)
--- NOTE | 2019-06-26 16:33 | CON ---
DATE OF CONSULTATION: 06/26/2019 REASON FOR CONSULTATION: 1. Postoperative urinary retention following cervical posterior laminectomy. 2. Benign prostatic hypertrophy with obstruction. 3. History of urethral stricture disease, status post urethroplasty by Dr. Azar in [place]. HISTORY OF PRESENT ILLNESS: Mr. 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 Ansley Londono. The patient had postoperative issues with urinary retention and we initially placed an indwelling Solano catheter with return of about 1500 mL of urine. We left the catheter indwelling and placed him on maximal medical therapy for benign prostatic hypertrophy. The patient later developed some particulate in his urine in the context of a low-grade temperature. The patient simultaneously had this over distention of his abdomen secondary to ileus and constipation. The patient's Solano catheter was removed, and the patient again developed urinary retention symptoms. Initially, he was placed on intermittent catheterization and was not able to void on his own despite maximal medical therapy. We suspect that this is a combination of prostate origin and medication origin retention in conjunction with constipation. Overnight, the patient started on Dulcolax suppository and again MiraLAX. The patient had one bowel movement this morning prior to my rounds on with him and he feels a little bit better. He is continuing to have severe neck discomfort and muscle spasms in the neck area. He reports that he is still very uncomfortable. PHYSICAL EXAMINATION: GENERAL: This is a pleasant white male, in no apparent distress. VITAL SIGNS: The patient is afebrile, temperature is 97.5, pulse 69, respirations 16, O2 saturation on room air is 98%, and blood pressure is 165/84 with blood pressures when not in pain down to around 126/69. HEAD, EYES, EARS, NOSE, AND THROAT: Extraocular movements are intact. Sclerae are anicteric. Oropharynx is clear. NECK: Supple. LUNGS: Clear to auscultation bilaterally. CARDIAC: Regular rate and rhythm without murmur, rub, or gallop. ABDOMEN: Somewhat softer after the bowel movement and there are bowel sounds heard on auscultation. GENITOURINARY: There is no indwelling Solano catheter. LABORATORY STUDIES: We did have a metabolic panel performed this morning and the patient's blood urea nitrogen is 19 with a creatinine of 0.87, indicating relative dehydration. The AST and ALT are elevated. Albumin is low at 3.2. Once again reviewing the patient's urinalysis from yesterday that showed urine glucose at 150, urine blood at 2+, urine nitrite at 1+. On microscopic evaluation, there were 11 to 20 red cells and greater than 50 white cells and 1+ bacteria in the urine. This UA would be compatible with the patient with indwelling Solano catheter. There are no culture results available. ASSESSMENT AND PLAN: Urinary retention. Recommending continued management of the patient with maximal medical therapy. Cefzil at 500 mg twice daily, tamsulosin 0.4 mg b.i.d., and finasteride 5 mg p.o. daily. Recommending minimization of muscle relaxants and narcotics. In addition, due to the patient's dehydrated state, careful administration of resuscitation fluids should be considered if the patient cannot maintain adequate hydration by mouth. He is on Toradol, which is difficult in the kidneys with dehydration being present. In addition, I spent about 20 minutes today trying to make contact with the patient's primary urologist, Dr. Peter Azar from the [facility] Department of Urology in [place] and did talk with his administrative staff at area code [phone]. The patient's physician is not available for evaluation and discussion of his care at this point, so we are going to continue with intermittent catheterization as a management plan for now. I believe with improvement of the patient's constipation, minimization of the muscle relaxants and narcotics, the patient may develop improvement in his voiding function and actually get to where we cannot worry about intermittent catheterization or catheter at all. If he develops difficulty with catheterization over the weekend, I would recommend placement of an either 16-Ecuadorean coude catheter by urologist with lidocaine jelly or alternatively cystoscopic placement of a catheter. Over 35 minutes of consultation and assessment time was spent in evaluation and assessment of this patient today. Job ID: [id number]
[2019-06-26] MEDS: Finasteride 5 MG TAB PO SCH (21:00)
[2019-06-27] MEDS: HYDROcodone/Acetaminophen 5/325 mg Tablet PO PRN ×3 (01:29→14:03)
[2019-06-27] MEDS: Baclofen 10 MG TAB PO SCH ×3 (05:36→22:57)
[2019-06-27] MEDS: Sodium Chloride 0.9% 1,000 ML IV SCH ×2 (05:36→18:45)
[2019-06-27] MEDS: Cefprozil 250 MG TAB PO SCH ×2 (07:54→21:23)
[2019-06-27] MEDS: Famotidine 20 MG TAB PO SCH ×2 (07:54→21:23)
[2019-06-27] MEDS: Gabapentin 300 MG CAP PO SCH ×2 (07:55→21:23)
[2019-06-27] MEDS: Tamsulosin HCl 0.4 MG CAP PO SCH ×2 (07:55→21:23)
[2019-06-27] MEDS: Milk Of Magnesia 30 ML UDCUP PO SCH ×2 (07:57→21:23)
[2019-06-27] MEDS: Polyethylene Glycol 3350 17 GM Packet PO SCH (07:58)
[2019-06-27] MEDS ORDERED: Diazepam 2 MG TAB PO PRN (10:39)
--- NOTE | 2019-06-27 11:03 | PRG ---
DATE OF SERVICE: 06/27/2019 Mr. Treviño is eight days into his hospitalization for cervical laminectomy. He is already on large doses of baclofen, Valium, and reports improvement in muscle spasms. It is still quite limited. He has urinary catheter in place for urinary retention. While he moves all extremities to command, he appears frustrated with his lack of progress, although I let him know that it is simply going to take time, but I do need him mobilizing more. His family is in complete agreement. We will try and be a bit more aggressive with his Valium today to help with muscle spasm, but I emphasized the importance of mobilization today. Job ID: [id number]
--- NOTE | 2019-06-27 13:20 | ULT ---
EXAM: Bilateral lower extremity venous duplex ultrasound with color and spectral Doppler imaging: HISTORY: Impaired mobility, fever, minimal leg edema COMPARISON: 06/23/2019 FINDINGS: Exam performed from the groin to the ankle including the visualized greater saphenous, common femoral , superficial femoral, profunda femoral, popliteal, trifurcation, and posterior tibial veins. There is phasic flow with normal compressibility and normal augmentation at all examined levels. No evidence for intraluminal thrombus. IMPRESSION: No evidence for deep venous thrombosis.
[2019-06-27] MEDS: Finasteride 5 MG TAB PO SCH (21:23)
[2019-06-27] MEDS ORDERED: Baclofen 10 MG TAB PO SCH (22:15)
[2019-06-27 22:53] LABS: Bilirubin Negative (Negative); Blood, Urine Trace (Negative); Clarity Clear (Clear); Glucose, Urine (Dipstick) Normal (Negative); Leukocyte 500 Leu/uL (Negative); Nitrite Negative (Negative); Protein, Urine (Dipstick) Negative (Neg-Trace); Squamous Epithelial None Seen HPF (0-3); Urobilinogen Normal mg/dL (Less than 2); WBC/HPF 21-50 HPF (0-3)
[2019-06-27 23:05] LABS: Bacteria/HPF Rare-Few HPF (None Seen)
[2019-06-28] MEDS: Baclofen 10 MG TAB PO SCH ×3 (05:29→21:01)
[2019-06-28] MEDS: Sodium Chloride 0.9% 1,000 ML IV SCH ×3 (06:36→19:00)
[2019-06-28] MEDS ORDERED: Lidocaine 2% Viscous Solution 10 ML, Aluminum & Magnesium Hydroxide 30 ML SSW SCH (09:45)
[2019-06-28] MEDS: Milk Of Magnesia 30 ML UDCUP PO SCH ×2 (10:30→21:01)
[2019-06-28] MEDS: Polyethylene Glycol 3350 17 GM Packet PO SCH (10:31)
[2019-06-28 10:49] LABS: Anion Gap 11 mmol/L (10-20); BUN (Urea Nitrogen) 16 mg/dL (8.4-25.7); Calc. Creatinine Clearance 102 mL/min (70-130); Calcium 9.4 mg/dL (7.8-10.44); Carbon Dioxide 22 mmol/L (23-31); Chloride 97 mmol/L (98-107); Estimated GFR-MDRD Greater than 90; Glucose 151 mg/dL (83-110); Potassium 4.4 mmol/L (3.5-5.1); Sodium 126 mmol/L (136-145)
--- NOTE | 2019-06-28 10:50 | PDOC.FPRHP ---
- History of Present Illness Chief Complaint: AMS History of Present Illness: Mr. Treviño is a pleasant 73 yo male who recently underwent C3-7 laminectomy 9 days ago. The patient has been progressing well with physical therapy but had continued having significant muscle spasms. His initial treatment regimen for the pain and spasms includes norco, baclofen, fentanyl, tramadol, and gabapentin. His daughter is at the bedside and states that he has had some brain fog since the surgery however overnight, the nurse reports that this worsened last night. Examples of his change include trouble putting sentences together, trouble with timeframes, and knowing where he is. His daughter reports he is healthy and usually mentally sharp. She denies any history of dementia or memory troubles. flomax - Allergies/Adverse Reactions Allergies Allergy/AdvReac Type Severity Reaction Status Date / Time ciprofloxacin [From Cipro] Allergy Intermediate INCREASED Verified 06/16/19 09: 42 HEART RATE levofloxacin [From Levaquin] Allergy "irregular Verified 06/16/19 09:42 heart rate" Sulfa (Sulfonamide Allergy "as a kid, Verified 06/16/19 09:42 Antibiotics) my mouth broke out" - Home Medications Medication Instructions Recorded Confirmed Type Multivitamin [Multivitamins] 1 cap PO DAILY 01/04/16 06/16/19 History Tamsulosin HCl [Flomax] 0.4 mg PO QAM 01/04/16 06/16/19 History Aspirin [Aspirin EC] 81 mg PO DAILY 01/25/16 06/16/19 History Acetaminophen ER (8hr) [TYLENOL ER 2 tab PO Q4H PRN 06/16/19 06/16/19 History (8hr ARTHRITIS PAIN)] Ranitidine HCl 150 mg PO BID 06/16/19 06/16/19 History Tadalafil 1 tab PO ASDIR PRN 06/16/19 06/16/19 History Testosterone 1 applic TOP DAILY 06/16/19 06/16/19 History - History PMHx: BPH, bladder tumor PSHx: Urethral reconstruction, septoplasty, tonsilectomy FHx: None per daughter Social: Dense Drug, alcohol, or tobacco - Review of Systems General: denies: fever/chills, weight/appetite/sleep changes Eyes: denies: eye pain, vision changes ENT: denies: nasal congestion Respiratory: denies: cough, congestion, shortness of breath Cardiovascular: denies: chest pain, palpitation Gastrointestinal: denies: nausea, vomiting Genitourinary: reports: other (previous urinary retention, bhandari catheter is in place) Skin: denies: rashes, lesions Musculoskeletal: reports: pain (neck and shoulders), tenderness, stiffness Neurological: reports: numbness, weakness (due to pain and muscle spasms) Psychological: reports: anxiety. denies: depression - Vital signs BP: 145/84 HR: 88 RR: 18 Tmax: 98.5 Pox: 95% on ra Wt: 88 kg - Physical Exam Constitutional: NAD, awake, alert and oriented (but struggles to complete sentences) HEENT: normocephalic and atraumatic, PERRLA (constricted but reactive), EOMI, grossly normal vision, grossly normal hearing, MMM Neck: trachea midline, no JVD Chest: no-tender to palpation, no lesions Heart: RRR, normal S1/S2, no murmurs/rubs/gallops, pulses present, no edema Lungs: CTAB, no respiratory distress, good air movement Abdomen: soft, non-tender, bowel sounds present, no masses/distention Musculoskeletal: normal structure, ROM grossly normal Neurological: no focal deficit, CN II-XII intact, normal sensation Skin: no rash/lesions, good turgor, other (healing incision on posterior neck) Heme/Lymphatic: no unusual bruising or bleeding, no purpura Psychiatric: other (Answers simple questions but unable to carry conversation and gets confused easily during interview) FMR H&P: Results - Labs Result Diagrams: 06/28/19 10:24 06/28/19 10:24 Lab results: Sodium 133 mmol/L (136-145) L 06/26/19 08:44 Potassium 3.5 mmol/L (3.5-5.1) 06/26/19 08:44 Chloride 101 mmol/L (98-107) 06/26/19 08:44 Carbon Dioxide 24 mmol/L (23-31) 06/26/19 08:44 BUN 19 mg/dL (8.4-25.7) 06/26/19 08:44 Creatinine 0.87 mg/dL (0.7-1.3) 06/26/19 08:44 Glucose 98 mg/dL (83-110) 06/26/19 08:44 Calcium 8.7 mg/dL (7.8-10.44) 06/26/19 08:44 Total Bilirubin 0.5 mg/dL (0.2-1.2) 06/26/19 08:44 AST 80 U/L (5-34) H 06/26/19 08:44 ALT 66 U/L (8-55) H 06/26/19 08:44 Alkaline Phosphatase 74 U/L (40-150) 06/26/19 08:44 Serum Total Protein 5.9 g/dL (5.8-8.1) 06/26/19 08:44 Albumin 3.2 g/dL (3.4-4.8) L 06/26/19 08:44 Urine Ketones Negative mg/dL (Negative) 06/27/19 22:31 Urine Blood Trace (Negative) A 06/27/19 22:31 Urine Nitrite Negative (Negative) 06/27/19 22:31 Ur Leukocyte Esterase 500 Brittney/uL (Negative) A 06/27/19 22:31 Urine RBC 7-10 HPF (0-3) A 06/27/19 22:31 Urine WBC 21-50 HPF (0-3) A 06/27/19 22:31 Ur Squamous Epith Cells None Seen HPF (0-3) 06/27/19 22:31 Urine Bacteria Rare-Few HPF (None Seen) 06/27/19 22:31 - Radiology Interpretation CT scan - head Status: report reviewed by me (No intracranial lesion or other acute process) FMR H&P: A/P - Problem List (1) Acute encephalopathy Current Visit: Yes Status: Acute Code(s): G93.40 - ENCEPHALOPATHY, UNSPECIFIED (2) Urinary retention due to benign prostatic hyperplasia Current Visit: Yes Status: Acute Code(s): N40.1 - BENIGN PROSTATIC HYPERPLASIA WITH LOWER URINARY TRACT SYMP; R33.8 - OTHER RETENTION OF URINE - Plan This is a 73 yo male with a pmh of BPH, cervical spinal stenosis with myelopathy Acute encephalopathy likely 2/2 polypharmacy vs. urosepsis -Pending head CT, CBC, CMP -Holding multiple potential mind altering medications in an attempt to better assess current mentation -On Vancomycin and zosyn currently -Encourage regular reorientation by family -Moved to the ICU for closer monitoring and neuro checks Pseudomonal UTI - Covered by abx as above Laminecotmy and facetectomy -Neurosurgery recommendations We will follow with neurosurgery.
--- NOTE | 2019-06-28 10:58 | CT ---
Head CT without contrast 06/28/2019: HISTORY: Confusion, altered mental status TECHNIQUE: Axial CT imaging at 5 mm intervals from vertex through skull base without contrast FINDINGS: The imaged paranasal sinuses and mastoid air cells are well aerated. No displaced calvarial fracture is seen. There is no intracranial hemorrhage, midline shift, mass effect, or ventricular enlargement. IMPRESSION: No acute findings.
[2019-06-28 11:01] LABS: Band 20 % (5-11); Hemoglobin 12.5 g/dL (14.0-18.0); Lymphocytes 5 % (21-51); MDiff Complete? YES; Mean Corpuscular HGB CONC 34.3 g/dL (32.0-36.0); Mean Corpuscular Volume 96.2 fL (78.0-98.0); Metamyelocyte 1 % (0-0); Monocytes 2 % (0-10); Neutrophil 72 % (42-75); Platelet Count 196 thou/uL (130-400); RBC Distribution Width 11.7 % (11.5-14.5); Vacuoles SLIGHT; White Blood Cell (WBC) Count 28.4 thou/uL (4.8-10.8)
--- NOTE | 2019-06-28 11:34 | PRG ---
DATE OF SERVICE: 06/28/2019 This is Bernardino Bravo PA-C dictating a report for Tavon Reed MD. Mr. Treviño is postoperative day #9 having undergone multilevel cervical laminectomies with posterior fusion. The patient has complaints of confusion today as well as significant posterior neck pain and bilateral arm pain. He is nonspecific in where his pain is residing in regard to the arms. He also complains of headache. He did undergo a UA that was positive for leuko esterase and he is being followed by Urology, but he is on Cefzil. We are also titrating down on his Baclofen and he is at 15 mg t.i.d. He has good strength in all the extremities and apparently has been working with therapies. He has remained hemodynamically stable. At this time, I will order IV Tylenol to help limit the narcotics as this may cause confusion. 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 Lastly, I will check a head CT, given that the patient has intermittent headache and some altered mental status. I have consulted our Family Medicine residents to help with medical management of the patient and I have discontinued his Valium, once again I do not want to add to anymore confusion. I have also ordered electrolytes as well as blood count just to ensure that these are stable. I have also updated the patient's daughter at bedside. I would also like him to work with physical therapies and I have ordered this. His incision is healing very well without any drainage, but I would like the incision to be covered. I have also updated the patient's nurse. We will follow up on the results of his labs and head CT, but otherwise the patient likely needs more time postoperatively for healing. Please call with any changes in the patient's neurologic status. Job ID: [id number]
[2019-06-28] MEDS: Gabapentin 300 MG CAP PO SCH ×2 (11:36→21:01)
[2019-06-28] MEDS: Acetaminophen 1,000 MG in Premix Bag 1 BAG IVPB SCH ×2 (11:47→18:10)
[2019-06-28] MEDS: Tamsulosin HCl 0.4 MG CAP PO SCH ×2 (11:47→21:01)
[2019-06-28] MEDS: Famotidine 20 MG TAB PO SCH ×2 (11:48→21:01)
[2019-06-28] MEDS: Cefprozil 250 MG TAB PO SCH (11:48)
[2019-06-28] MEDS: Cefepime 2 GM in Sodium Chloride 0.9% 100 ML IVPB SCH (12:09)
--- NOTE | 2019-06-28 13:07 | PRG ---
DATE OF SERVICE: 06/28/2019 This is Bernardino Bravo PA-C dictating a report for Tavon Reed MD. After Mr. Treviño's labs were reviewed as well as his urine culture and head CT, it was noted that the patient is likely developing urosepsis. We would like to avoid any type of septic shock. Therefore, we have elected to escalate his care and move him to the ICU for q.1 hour neuro checks and close neurologic monitoring. His white blood cell count is 28.4. He is not on any steroids to escalate this level. His sodium is also 126. His urine continues to demonstrate infection now. It is improving somewhat. Unfortunately, the antibiotic that he was on was not sensitive according to the urine culture. His urine was found to have Pseudomonas based on microbiology and so based on this, he was initiated on cefepime and we have also initiated vancomycin to keep the antibiotic spectrum broad. We have consulted Family Medicine residents and asked that they help with the patient's medical management including any type of blood pressure control. Follow up on chest x-ray and sepsis workup, which would include blood cultures. I have updated both the patient and his daughter that review of his head CT shows no intracranial hemorrhage or acute abnormality and likely his intermittent delirium is related to his likely urosepsis. His vital signs remain relatively stable. He does have some hypertension, but he is oxygenating well on room air. He is not tachycardic and he has remained afebrile over the past 48 hours. Again, I have updated the patient and his daughter at bedside and we will again like to escalate his care to ensure that his antibiotics are appropriate and that he continues to improve. The patient and his daughter appreciative of the care and we will follow up on the patient tomorrow morning sooner should symptoms dictate. Please call with any changes in the patient's neurologic status. Job ID: [id number]
--- NOTE | 2019-06-28 14:08 | HP ---
HISTORY OF PRESENT ILLNESS: I have examined the patient. I have discussed the case with Dr. Barker and agree with his assessment and plan. Briefly, Mr. Treviño is a very pleasant 73-year-old man, who 9 days ago, underwent C3 through C7 laminectomy. He had been doing well until last night when he became very confused, having trouble placing words and sentences together. On my exam today, he knows the month. He knows where he is, who he is. He knows who is daughter is, but he missed the year by one year, stating it was 2019. PHYSICAL EXAMINATION: GENERAL: In the event other than the above, he is alert, oriented, pleasant, and in no distress. EAR, NOSE, AND THROAT: No erythema or exudate. NECK: Supple to a point, but the patient has had surgery, so there is of course some muscle stiffness. CARDIAC: Heart rhythm is regular. No gallop or murmur noted. LUNGS: Clear without rales or wheezes. ABDOMEN: Flat and soft. NEUROLOGIC: Other than missing the year, he is alert and oriented. He has no focal deficits whatever. ASSESSMENT: Acute delirium, resolved. PLAN: We will continue to follow the patient with Neurosurgery Service. Right now, it is important to keep Mr. Treviño oriented. During the day, the blind should be kept raised the television on. A clock should be placed where he can see it. If he wears glasses or hearing aid, these should be placed. We should reduce his medications to only those essential for his care. Remaining of medications, he has been on can certainly be mind-altering. We will also continue treatment for a Pseudomonas urinary tract infection, which is likely incidental to his delirium. Plan as above. Job ID: [id number]
--- NOTE | 2019-06-28 14:30 | RAD ---
EXAM: Chest one view: HISTORY: Altered mental status COMPARISON: 06/25/2019 FINDINGS: Stable minimal increased markings bilaterally. Heart size: Within normal limits. Lungs: Clear of acute process. No evidence for pneumonia, pleural effusion, acute edema, or pneumothorax, or other significant acute process. IMPRESSION: No significant acute intrathoracic disease. Stable since prior study.
[2019-06-28] MEDS: Finasteride 5 MG TAB PO SCH (21:01)
[2019-06-29] MEDS: Cefepime 2 GM in Sodium Chloride 0.9% 100 ML IVPB SCH ×3 (00:03→23:29)
[2019-06-29] MEDS: Acetaminophen 1,000 MG in Premix Bag 1 BAG IVPB SCH ×2 (00:03→05:43)
[2019-06-29] MEDS: Baclofen 10 MG TAB PO SCH ×3 (05:43→21:12)
[2019-06-29 06:05] LABS: Anion Gap 11 mmol/L (10-20); BUN (Urea Nitrogen) 12 mg/dL (8.4-25.7); Calc. Creatinine Clearance 106 mL/min (70-130); Calcium 8.9 mg/dL (7.8-10.44); Carbon Dioxide 24 mmol/L (23-31); Chloride 105 mmol/L (98-107); Estimated GFR-MDRD Greater than 90; Glucose 86 mg/dL (83-110); Potassium 4.1 mmol/L (3.5-5.1); Sodium 136 mmol/L (136-145)
[2019-06-29 06:26] LABS: Hemoglobin 11.5 g/dL (14.0-18.0); Mean Corpuscular HGB CONC 33.3 g/dL (32.0-36.0); Mean Corpuscular Hemoglobin 32.4 pg (27.0-31.0); Mean Corpuscular Volume 97.2 fL (78.0-98.0); Mean Platelet Volume 8.1 fL (7.4-10.4); Platelet Count 214 thou/uL (130-400); RBC Distribution Width 11.8 % (11.5-14.5); Red Blood Cell (RBC) Count 3.54 mill/uL (4.70-6.10); White Blood Cell (WBC) Count 16.3 thou/uL (4.8-10.8)
[2019-06-29 06:31] LABS: Band 19 % (5-11); Eosinophils 3 % (0-10); Lymphocytes 6 % (21-51); MDiff Complete? YES; Monocytes 5 % (0-10); Neutrophil 67 % (42-75)
--- NOTE | 2019-06-29 06:42 | PDOC.FM ---
- Subjective Subjective: NAEO. Patient reports he did not sleep well and had some recurrent visual hallucinations overnight like he "was on LSD." Is oriented to perso, place & situation but a little off on dates. - Objective MAR Reviewed: Yes Vital Signs & Weight: Vital Signs (12 hours) Temp Pulse Ox 06/29/19 04:00 97.6 F 06/29/19 00:00 98.5 F 06/28/19 20:00 98.3 F 06/28/19 19:45 99 Weight Weight 92 kg Most Recent Monitor Data Heart Rate from ECG 73 NIBP 139/80 NIBP BP-Mean 99 Respiration from ECG 15 SpO2 98 I&O: 06/27/19 06/28/19 06/29/19 06:59 06:59 06:59 Intake Total 1300 1200 2561 Output Total 2784 1376 6510 Balance -1580 -5155 -2739 Result Diagrams: 06/29/19 05:00 06/29/19 05:00 Phys Exam - Physical Examination Constitutional: NAD HEENT: moist MMs, sclera anicteric Neck: supple, full ROM Respiratory: no wheezing, no rales, no rhonchi, clear to auscultation bilateral Cardiovascular: RRR, no significant murmur Gastrointestinal: soft, non-tender, no distention, positive bowel sounds Musculoskeletal: no edema Neurological: non-focal, moves all 4 limbs Psychiatric: normal affect Skin: no rash, normal turgor Dx/Plan (1) BPH (benign prostatic hyperplasia) Code(s): N40.0 - BENIGN PROSTATIC HYPERPLASIA WITHOUT LOWER URINRY TRACT SYMP Status: Acute (2) Complicated UTI (urinary tract infection) Code(s): N39.0 - URINARY TRACT INFECTION, SITE NOT SPECIFIED Status: Acute (3) Acute encephalopathy Code(s): G93.40 - ENCEPHALOPATHY, UNSPECIFIED Status: Acute (4) Urinary retention due to benign prostatic hyperplasia Code(s): N40.1 - BENIGN PROSTATIC HYPERPLASIA WITH LOWER URINARY TRACT SYMP; R33.8 - OTHER RETENTION OF URINE Status: Acute - Plan Plan: This is a 73 yo male with a pmh of BPH & cervical spinal stenosis with myelopathy who is post-op day #10 s/p a C3-C7 laminectomy currently being treated for a complicated UTI. Acute encephalopathy likely 2/2 polypharmacy vs. urosepsis -Mentation improved since initiation of sensitive abx for UTI. Suspect some component of sundowning in setting up insomnia & extended hospital stay. - Will tailor antibiotics based on urine culture results & continue only IV cefepime while in hospital. -Will continue to encourage regular reorientation by family & continue to hold mind-altering medications. Pseudomonal UTI - Will continue only cefepime with plans to transition to PO abx the day before discharge to be continued for a 14 day total course. Post-op day #10 s/p Laminecotmy and facetectomy -Aware, Neurosurgery managing. BPH - Continue flomax & finasteride per urology recs. We will continue to follow with neurosurgery. Addendum - Attending - Attending Attestation Date/Time: 06/29/19 1877 I personally evaluated the patient and discussed the management with Dr. Quick. I agree with the History, Examination, Assessment and Plan documented above with any addition or exceptions noted below. Patient overall stable. WBC significantly improved. We are consulted for medical mgmt. Continuing broad spectrum abx until cultures finalize, but looks like his AMS may be mostly due to pseudomonas UTI. Urology on board. Monitor mentation but anticipate that he should continue to improve. Dispo per primary team, NSGY.
[2019-06-29] MEDS: Sodium Chloride 0.9% 1,000 ML IV SCH ×2 (08:57→21:13)
[2019-06-29] MEDS: Gabapentin 300 MG CAP PO SCH ×2 (08:58→20:04)
[2019-06-29] MEDS: Tamsulosin HCl 0.4 MG CAP PO SCH ×2 (08:58→20:04)
[2019-06-29] MEDS: Famotidine 20 MG TAB PO SCH ×2 (08:58→20:04)
[2019-06-29] MEDS: Polyethylene Glycol 3350 17 GM Packet PO SCH (09:26)
[2019-06-29] MEDS: Milk Of Magnesia 30 ML UDCUP PO SCH ×2 (09:26→20:05)
--- NOTE | 2019-06-29 10:56 | PRG ---
DATE OF SERVICE: 06/29/2019 Mr. Treviño remains hospitalized. Unfortunately yesterday, he had increasing confusion. Head CT was negative, but upon laboratory assessment, urine culture demonstrated Pseudomonas. He had been started on an antibiotic, but I did not feel this covered his Pseudomonas adequately. As such, I placed him on vancomycin and cefepime for antipseudomonal coverage. His white blood cell count was found to be 28,000 with bandemia. Therefore, I transferred him to the ICU, given my concern of urosepsis. He had remained hemodynamically stable. This morning, he is certainly more lucid, but still has some difficulty with following my discussion of his hospital course to-date. We are continuing antibiotics. His white count has come down from 28 to 16. He has been afebrile. Ultrasound of the legs and chest x-ray have all been negative. We are waiting on the results of blood culture. Overall, I do feel as if he is doing better. We have eliminated other types of medications with exception of the baclofen and the gabapentin that would give him delirium and our Family Medicine colleagues are following along, I appreciate this. I should note as well he had become hyponatremic yesterday going from 133 to 126. It is now corrected to 136. We will plan for transfer back to the floor today and continue antibiotic coverage. Job ID: [id number]
[2019-06-29] MEDS: Acetaminophen 325 MG TAB PO PRN ×2 (13:08→19:42)
[2019-06-29] MEDS: Finasteride 5 MG TAB PO SCH (20:04)
[2019-06-30] MEDS: Acetaminophen 325 MG TAB PO PRN ×4 (00:20→17:18)
[2019-06-30] MEDS: Baclofen 10 MG TAB PO SCH ×2 (06:03→13:53)
[2019-06-30 06:08] LABS: Anion Gap 11 mmol/L (10-20); BUN (Urea Nitrogen) 10 mg/dL (8.4-25.7); Calc. Creatinine Clearance 120 mL/min (70-130); Calcium 9.1 mg/dL (7.8-10.44); Carbon Dioxide 22 mmol/L (23-31); Chloride 107 mmol/L (98-107); Estimated GFR-MDRD Greater than 90; Glucose 97 mg/dL (83-110); Potassium 4.1 mmol/L (3.5-5.1); Sodium 136 mmol/L (136-145)
[2019-06-30 06:26] LABS: Band 12 % (5-11); Hemoglobin 12.4 g/dL (14.0-18.0); Lymphocytes 7 % (21-51); MDiff Complete? YES; Mean Corpuscular Hemoglobin 32.5 pg (27.0-31.0); Mean Corpuscular Volume 95.4 fL (78.0-98.0); Monocytes 9 % (0-10); Neutrophil 72 % (42-75); Platelet Count 227 thou/uL (130-400); RBC Distribution Width 11.9 % (11.5-14.5); Red Blood Cell (RBC) Count 3.82 mill/uL (4.70-6.10); White Blood Cell (WBC) Count 11.6 thou/uL (4.8-10.8)
--- NOTE | 2019-06-30 07:26 | PDOC.FM ---
- Subjective Subjective: NAEO. Patient reports he once again did not sleep well but his visual hallucinations were much less. States he walked a great deal with PT yesterday and had his bhandari removed this AM. - Objective MAR Reviewed: Yes Vital Signs & Weight: Vital Signs (12 hours) Temp Pulse Resp BP Pulse Ox 06/30/19 03:20 98.6 F 70 16 141/79 H 98 06/29/19 23:32 98.2 F 75 16 145/77 H 96 06/29/19 19:31 97.9 F 76 16 162/82 H 100 Weight Weight 90.401 kg Most Recent Monitor Data Heart Rate from ECG 78 NIBP 152/93 NIBP BP-Mean 112 Respiration from ECG 15 SpO2 97 I&O: 06/29/19 06/30/19 07/01/19 06:59 06:59 06:59 Intake Total 2561 6420 Output Total 5300 4800 Balance -6979 1620 Result Diagrams: 06/30/19 05:06 06/30/19 05:06 Phys Exam - Physical Examination Constitutional: NAD HEENT: moist MMs, sclera anicteric Neck: supple, full ROM Respiratory: no wheezing, no rales, no rhonchi, clear to auscultation bilateral Cardiovascular: RRR, no significant murmur Gastrointestinal: soft, non-tender, no distention Musculoskeletal: no edema, pulses present Neurological: non-focal, moves all 4 limbs Psychiatric: normal affect, A&O x 3 Skin: no rash, normal turgor, cap refill <2 seconds Dx/Plan (1) BPH (benign prostatic hyperplasia) Code(s): N40.0 - BENIGN PROSTATIC HYPERPLASIA WITHOUT LOWER URINRY TRACT SYMP Status: Acute (2) Complicated UTI (urinary tract infection) Code(s): N39.0 - URINARY TRACT INFECTION, SITE NOT SPECIFIED Status: Acute (3) Acute encephalopathy Code(s): G93.40 - ENCEPHALOPATHY, UNSPECIFIED Status: Acute (4) Urinary retention due to benign prostatic hyperplasia Code(s): N40.1 - BENIGN PROSTATIC HYPERPLASIA WITH LOWER URINARY TRACT SYMP; R33.8 - OTHER RETENTION OF URINE Status: Acute - Plan Plan: This is a 73 yo male with a pmh of BPH & cervical spinal stenosis with myelopathy who is post-op day #11 s/p a C3-C7 laminectomy currently being treated for a complicated UTI. Acute encephalopathy likely 2/2 polypharmacy vs. a complicated UTI, improving - Mentation improved since initiation of sensitive abx for UTI. Will continue IV cefepime while in hospital & encourage regular reorientation by family. - Will continue to hold mind-altering medications. Pseudomonal UTI - Will continue IV cefepime for a total of a 14 day course since patient will be going to rehab upon discharge. Post-op day #10 s/p Laminecotmy and facetectomy -Aware, Neurosurgery managing. BPH - Continue flomax & finasteride per urology recs. Dispo: Anticipate d/c to rehab within the next 24-48 hours. Patient medically stable and is now receiving the appropriate antibiotic regimen for UTI. We will sign off. Thank you for allowing us to participate in the care of your patient. Addendum - Attending - Attending Attestation Date/Time: 06/30/19 7253 I personally evaluated the patient and discussed the management with Dr. Quick. I agree with the History, Examination, Assessment and Plan documented above with any addition or exceptions noted below. Patient here s/p NSGY C spine surgery and we are consulted after AMS and infection noted. Patient doing well. WBC downtrending. Continues on Cefepime for pseudomonas UTI. Other cultures pending. Continue to monitor mentation. Dispo per primary team.
[2019-06-30] MEDS: Sodium Chloride 0.9% 1,000 ML IV SCH (07:38)
[2019-06-30] MEDS: Gabapentin 300 MG CAP PO SCH (08:03)
[2019-06-30] MEDS: Polyethylene Glycol 3350 17 GM Packet PO SCH (08:03)
[2019-06-30] MEDS: Milk Of Magnesia 30 ML UDCUP PO SCH (08:03)
[2019-06-30] MEDS: Tamsulosin HCl 0.4 MG CAP PO SCH (08:03)
[2019-06-30] MEDS: Famotidine 20 MG TAB PO SCH (08:03)
[2019-06-30] MEDS: Cefepime 2 GM in Sodium Chloride 0.9% 100 ML IVPB SCH (12:20)
[2019-06-30 14:43] VITALS: BMI 25.5
[2019-06-30 16:05] VITALS: BP 156/84; TEMP 98.5
--- NOTE | 2019-07-02 23:25 | PQF ---
Once again, I have been contacted by someone in our hospital billing/coding division to create a clinical note in a patient chart after discharge. Please note this documentation serve no purpose in patient care, and the chart for this admission is closed. No other physicians are using this care record to help treat the patient, to there is no clinical utility for this documentation. I do not pretend to understand the complexities of medical remuneration, but I do suspect the request to which I am responding has a purely financial motive. From memory, Mr. Treviño began to exhibit disorientation last weekend while Dr. Reed was caring for him. A pseudomonas UTI with likely urosepsis was determined to be the cause, and appropriate antibiotic treatment resulted in a return of normal mentation. By the time I came back to the care team Saturday ( after the Holiday), Mr. Treviño was back to the level of cognitive function I remembered. All of this was likely documented in the chart already. --end-- MTDD
== END 2019-06-30 17:30 | DRG 519 ==
LOC: SDC 05:49 → SURG A 10:10 → CCU 06-28 13:34 → SURG B 06-29 11:28
PROVIDERS: ADMIT Neurological Surgery; ATTEND Neurological Surgery
PROC: 00NW0ZZ Release Cervical Spinal Cord, Open Approach (ICD-10-PCS; principal; 2019-06-20)
DX: M48.02 Spinal stenosis, cervical region (principal); G99.2 Myelopathy in diseases classified elsewhere; T83.511A Infection and inflammatory reaction due to indwelling urethral catheter, initial encounter; F05 Delirium due to known physiological condition; G95.9 Disease of spinal cord, unspecified; G93.49 Other encephalopathy; K21.9 Gastro-esophageal reflux disease without esophagitis; N40.1 Benign prostatic hyperplasia with lower urinary tract symptoms; M62.838 Other muscle spasm; K59.00 Constipation, unspecified; B96.5 Pseudomonas (aeruginosa) (mallei) (pseudomallei) as the cause of diseases classified elsewhere; Z88.2 Allergy status to sulfonamides; Z88.8 Allergy status to other drugs, medicaments and biological substances; Z01.818 Encounter for other preprocedural examination
CPT/HCPCS: 36415; 70450; 71045; 76000; 80048; 80053; 81001; 81003; 81015; 84145; 85025; 85027; 85610; 85730; 87040; 87077; 87086; 87186; 93005; 93010; 93970; J0131; J0670; J0690; J0692; J1100; J1170; J1885; J2001; J2270; J2274; J2405; J2704; J3010; J3370; J3490; J7050; J7070; S0028

== ENCOUNTER 2019-08-24 12:38 | Outpatient (CLI) | payer MEDICARE ==
--- NOTE | 2019-08-24 14:41 | RAD ---
CERVICAL SPINE TWO VIEWS: 08/24/2019 HISTORY: Re-evaluate cervical spine following surgery. COMPARISON: 03/02/2019 FINDINGS: Since the prior examination the patient has undergone bilateral laminectomies at C3, C4, C5 and C6. T here is disk space narrowing with degenerative endplate change and anterior osteophyte formation at C 4-C5, C5-C6 and C6-C7. There is mild anterolisthesis at C5-C6 measuring 3 mm. No prevertebral soft ti ssue swelling. Frontal imaging demonstrates multilevel mid cervical spine facet and uncovertebral osteophyte formati on, left greater than right, most prominent at C3-C4. IMPRESSION: Postoperative and degenerative change of the cervical spine as above. POS: [facility]
== END 2019-08-24 12:39 | disposition home or self-care (01) ==
LOC: TBSIIMAG 12:38
PROVIDERS: ATTEND Neurological Surgery
DX: M47.812 Spondylosis without myelopathy or radiculopathy, cervical region (principal); Z98.890 Other specified postprocedural states
CPT/HCPCS: 72040

== ENCOUNTER 2019-12-17 10:59 | Outpatient (CLI) | payer MEDICARE ==
--- NOTE | 2019-12-18 15:02 | RAD ---
Modified barium swallow HISTORY: Dysphagia, unspecified. Gastroesophageal reflux disease without esophagitis. FINDINGS: This examination was performed by speech pathology, video is available for evaluation. There are cons istencies of barium were administered during the exam. There is difficulty in formation of bolus into the posterior pharynx with pooling of contrast in the vallecula and occasionally within the piri form sinuses prior to initiation of the swallowing mechanism. Is evidence of an episode of with thin liquid barium. No aspiration was demonstrated during the exam. IMPRESSION: 1. Episode of penetration with thin liquid barium. No aspiration was seen. Fluoroscopy: Time-25.3 seconds Dose-0.59 mGy meter squared.
== END 2019-12-17 11:00 | disposition home or self-care (01) ==
PROVIDERS: ATTEND Otolaryngology Plastic Surgery within the Head & Neck
DX: R13.10 Dysphagia, unspecified (principal); K21.9 Gastro-esophageal reflux disease without esophagitis
CPT/HCPCS: 74230

== ENCOUNTER 2019-12-25 13:50 | Outpatient (CLI) | payer MEDICARE ==
--- NOTE | 2019-12-25 15:19 | MRI ---
MRI CERVICAL SPINE WITHOUT CONTRAST: 12/25/19 INDICATIONS: Cervical disc disease with myelopathy. Neck pain. Comparison made to MRI cervical spine dated 03/02/19. FINDINGS: Posterior laminectomy changes are now noted at C3, C4, C5, C6 levels. The cervical vertebrae maintain height and alignment. Degenerative disc changes are again noted. Loss of the disc space at C4-5, C5- 6 and C6-7. Anterior osteophytes from the cervical vertebrae are present at these levels. C2-3: Mild spondylosis indents the anterior thecal sac. No central canal or foraminal stenosis. No co rd impingement. C3-4: Mild posterior spondylosis mildly flattens the thecal sac. The anterior subarachnoid space is p reserved. There is evidence of bilateral foraminal stenosis more severe on the left due to facet and uncinate hypertrophy. C4-5: Mild posterior spondylosis and disc bulge flatten the thecal sac and efface the anterior subara chnoid space. No significant cord impingement. There is bilateral foraminal stenosis, more severe on the right due to facet and uncinate hypertrophy. C5-6: Posterior disc bulge and spondylosis efface the anterior subarachnoid space. No significant cor d impingement. Bilateral foraminal stenosis more prominent on the right. C6-7: Disc bulge and spondylosis flatten the thecal sac. The anterior subarachnoid space is mildly e ffaced but preserved. Bilateral foraminal stenosis. C7-T1: Minimal spondylosis. No central canal stenosis. No definite foraminal stenosis. Cervical cord signal is normal. IMPRESSION: Postop changes now noted as described. Posterior disc bulge and spondylosis at multiple levels. There is evidence of foraminal stenosis at multiple levels due to facet and uncinate hypertrophy. CT may b e of benefit to better assess the hypertrophic change and degree of foraminal stenosis if indicated. POS: [facility]
== END 2019-12-25 13:51 | disposition home or self-care (01) ==
LOC: TBSIIMAG 13:50
PROVIDERS: ATTEND Neurological Surgery
DX: M50.021 Cervical disc disorder at C4-C5 level with myelopathy (principal); M47.12 Other spondylosis with myelopathy, cervical region; M48.02 Spinal stenosis, cervical region; M89.38 Hypertrophy of bone, other site
CPT/HCPCS: 72141

== ENCOUNTER 2021-03-25 12:04 | Emergency (ER) | payer MEDICARE ==
[2021-03-25] MEDS ORDERED: Fentanyl 100 MCG/2 ML VIAL ONE (14:12)
[2021-03-25] MEDS ORDERED: Dexamethasone 4 mg/ml Vial ONE (14:12)
[2021-03-25] MEDS ORDERED: Lorazepam 2 MG/ML VIAL ONE (14:12)
[2021-03-25] MEDS ORDERED: Ketorolac Tromethamine 30 MG/ML VIAL ONE (14:13)
== END 2021-03-25 15:28 | disposition home or self-care (01) ==
LOC: ERS 12:04
DX: M51.86 Other intervertebral disc disorders, lumbar region (principal); Z79.899 Other long term (current) drug therapy; Z79.891 Long term (current) use of opiate analgesic
CPT/HCPCS: 72148; 96374; 96375; J1100; J1885; J2060; J3010

== ENCOUNTER 2022-04-18 10:06 | Day surgery (SDC) | payer MEDICARE ==
[2022-04-13 15:19] VITALS: BMI 25.0
[2022-04-18] MEDS ORDERED: Bupivacaine 0.25% HCL 30 ML VIAL ONE (10:52)
[2022-04-18] MEDS ORDERED: Lidocaine 1% w/Epinephrine 1:100K 20 ML VIAL ONE (10:52)
[2022-04-18] MEDS ORDERED: PROPOFOL 20 ML ONE (12:56)
[2022-04-18] MEDS ORDERED: SUGAMMADEX SODIUM 200 MG/2 ML VIAL ONE (12:56)
[2022-04-18] MEDS ORDERED: fentaNYL Citrate/PF 100 MCG/2 ML SYRINGE ONE (12:56)
[2022-04-18] MEDS ORDERED: CEFAZOLIN 2 GM VIAL ONE (13:01)
[2022-04-18] MEDS ORDERED: Sodium Chloride 0.9% 100 ML ONE (13:01)
[2022-04-18] MEDS ORDERED: Fentanyl 100 MCG/2 ML VIAL ONE ×3 (14:25→15:12)
[2022-04-18] MEDS ORDERED: HYDROcodone/Acetaminophen 5/325 mg Tablet ONE (15:49)
== END 2022-04-18 17:55 | disposition home or self-care (01) ==
LOC: SDC 10:06
PROVIDERS: ATTEND Surgery
PROC: 0FT44ZZ Resection of Gallbladder, Percutaneous Endoscopic Approach (ICD-10-PCS; principal; 2022-04-18)
DX: K80.10 Calculus of gallbladder with chronic cholecystitis without obstruction (principal); K21.9 Gastro-esophageal reflux disease without esophagitis; Z79.82 Long term (current) use of aspirin; Z79.899 Other long term (current) drug therapy; Z88.1 Allergy status to other antibiotic agents; Z88.2 Allergy status to sulfonamides
CPT/HCPCS: 88304; C1713; J0690; J2704; J3010; J3490; S0020

== ENCOUNTER 2022-11-20 11:19 | Inpatient (IN) | payer MEDICARE ==
[~2022-11-20 11:19] MED LIST: Iopamidol-370 76% 500 ML 1 ML ONE
[2022-11-20 11:59] LABS: #Eosinphils 0.1 thou/uL (0.0-0.7); #Lymphocytes 1.9 thou/uL (1.20-3.40); #Monocytes 1.5 thou/uL (0.11-0.59); #Neutrophils 11.6 thou/uL (1.40-6.50); %Lymphocytes 12.7 % (21.0-51.0); %Monocytes 10.1 % (0.0-10.0); %Neutrophils 76.2 % (42.0-75.0); Hemoglobin 16.2 g/dL (14.0-18.0); Mean Corpuscular HGB CONC 33.6 g/dL (32.0-36.0); Mean Corpuscular Hemoglobin 32.6 pg (27.0-31.0); Mean Corpuscular Volume 97.1 fl (78.0-98.0); Mean Platelet Volume 8.9 fL (7.4-10.4); Platelet Count 201 10x3/uL (130-400); RBC Distribution Width 12.3 % (11.5-14.5); Red Blood Cell (RBC) Count 4.97 mill/uL (4.70-6.10); White Blood Cell (WBC) Count 15.2 10x3/uL (4.8-10.8)
[2022-11-20 12:25] LABS: ALT (SGPT) 33 U/L (8-55); AST (SGOT) 22 U/L (5-34); Alkaline Phosphatase 68 U/L (40-110); Anion Gap 13 mmol/L (10-20); BUN (Urea Nitrogen) 17 mg/dL (8.4-25.7); Calc. Creatinine Clearance 0 mL/min (70-130); Calcium 9.1 mg/dL (7.8-10.44); Carbon Dioxide 26 mmol/L (23-31); Chloride 101 mmol/L (98-107); Estimated GFR 90; Globulin 2.8 g/dL (2.4-3.5); Glucose 79 mg/dL (83-110); Lipase 150 U/L (8-78); Potassium 4.6 mmol/L (3.5-5.1); Protein, Total 6.8 g/dL (5.8-8.1); Sodium 135 mmol/L (136-145)
[2022-11-20] MEDS ORDERED: Piperacillin/Tazobactam 4.5 GM VIAL ONE (13:10)
[2022-11-20] MEDS ORDERED: Ondansetron PF 4 MG/2 ML Vial ONE ×3 (13:10→13:39)
[2022-11-20] MEDS ORDERED: Morphine 4 MG/ML VIAL ONE (13:39)
[2022-11-20] MEDS ORDERED: Ketorolac Tromethamine 30 MG/ML VIAL ONE (14:23)
[2022-11-20] MEDS ORDERED: Promethazine HCl 25 MG in Sodium Chloride 0.9% 50 ML IVPB SCH (15:00)
[2022-11-20] MEDS ORDERED: Fentanyl 100 MCG/2 ML VIAL ONE (15:03)
[2022-11-20] MEDS ORDERED: Meperidine HCl/PF 25 MG/ML VIAL SLOW IVP PRN (16:24)
[2022-11-20] MEDS ORDERED: Acetaminophen 325 MG TAB PO PRN (16:24)
[2022-11-20] MEDS ORDERED: HYDROcodone/Acetaminophen 5/325 mg Tablet PO PRN (16:24)
[2022-11-20] MEDS ORDERED: Ondansetron PF 4 MG/2 ML Vial IVP PRN (16:24)
[2022-11-20] MEDS ORDERED: Senokot S 8.6-50 MG TAB PO PRN (16:24)
[2022-11-20] MEDS ORDERED: Bisacodyl 10 MG SUPP PR PRN (16:24)
[2022-11-20 18:06] LABS: Bilirubin Negative (Negative); Blood, Urine Negative (Negative); Clarity Turbid (Clear); Glucose, Urine (Dipstick) Normal (Negative); Ketone, Urine Negative (Negative); Leukocyte 500 Leu/uL (Negative); Nitrite 2+ (Negative); Protein, Urine (Dipstick) 20 mg/dL (Neg-Trace); Squamous Epithelial 0-3 HPF (0-3); Urobilinogen Normal mg/dL (Less than 2); WBC/HPF Greater than 50 HPF (0-3)
[2022-11-20 18:13] VITALS: BMI 25.0
[2022-11-20 18:14] LABS: Bacteria/HPF 2+ HPF (None Seen)
[2022-11-20] MEDS ORDERED: Tamsulosin HCl 0.4 MG CAP PO SCH (21:00)
[2022-11-20] MEDS ORDERED: Fluticasone Propionate Nasal Spray 16 gm Bottle NASAL SCH (21:00)
[2022-11-20] MEDS: Pantoprazole 40 MG VIAL IVP SCH (21:17)
[2022-11-20] MEDS: Sodium Chloride 0.9% 1,000 ML IV SCH (21:26)
[2022-11-21] MEDS: Sodium Chloride 0.9% 1,000 ML IV SCH ×4 (00:38→13:31)
[2022-11-21 07:10] LABS: #Eosinphils 0.3 thou/uL (0.0-0.7); #Lymphocytes 1.6 thou/uL (1.20-3.40); #Monocytes 1.1 thou/uL (0.11-0.59); #Neutrophils 8.5 thou/uL (1.40-6.50); %Basophils 0.4 % (0.0-1.0); %Eosinophils 2.2 % (0.0-10.0); %Monocytes 9.3 % (0.0-10.0); Hemoglobin 13.8 g/dL (14.0-18.0); Mean Corpuscular HGB CONC 33.3 g/dL (32.0-36.0); Mean Corpuscular Hemoglobin 32.6 pg (27.0-31.0); Mean Platelet Volume 8.6 fL (7.4-10.4); Platelet Count 188 10x3/uL (130-400); RBC Distribution Width 12.3 % (11.5-14.5); Red Blood Cell (RBC) Count 4.23 mill/uL (4.70-6.10); White Blood Cell (WBC) Count 11.5 10x3/uL (4.8-10.8)
[2022-11-21 07:31] LABS: ALT (SGPT) 144 U/L (8-55); AST (SGOT) 95 U/L (5-34); Albumin 2.9 g/dL (3.4-4.8); Alkaline Phosphatase 104 U/L (40-110); Anion Gap 9 mmol/L (10-20); BUN (Urea Nitrogen) 13 mg/dL (8.4-25.7); Calc. Creatinine Clearance 99 mL/min (70-130); Carbon Dioxide 23 mmol/L (23-31); Cardiac Risk 4.4 (Less than 4.5); Chloride 107 mmol/L (98-107); Cholesterol 140 mg/dl (< 200 Desired); Estimated GFR 92; Globulin 2.7 g/dL (2.4-3.5); Glucose 72 mg/dL (83-110); HDL Cholesterol 32 mg/dL (>60 Neg Risk); LDL Cholesterol, Calculated 91 mg/dL; Potassium 4.3 mmol/L (3.5-5.1); Protein, Total 5.6 g/dL (5.8-8.1); Sodium 135 mmol/L (136-145); Triglycerides 86 mg/dL (Less than 150)
[2022-11-21] MEDS ORDERED: Polyethylene Glycol 3350 17 GM Packet PO SCH (09:00)
[2022-11-21] MEDS ORDERED: cefTRIAXone\\ROCEPHIN 1 GM in Sodium Chloride 0.9% 100 ML IVPB SCH (09:00)
[2022-11-21] MEDS: Pantoprazole 40 MG VIAL IVP SCH (09:07)
[2022-11-21 16:17] VITALS: BP 128/78; TEMP 98.3
== END 2022-11-21 16:34 | disposition home or self-care (01) | DRG 439 ==
LOC: ERS 11:19 → T4-A 17:45
PROVIDERS: ADMIT Internal Medicine; ATTEND Internal Medicine
DX: K85.90 Acute pancreatitis without necrosis or infection, unspecified (principal); N39.0 Urinary tract infection, site not specified; K59.00 Constipation, unspecified; N40.0 Benign prostatic hyperplasia without lower urinary tract symptoms; K29.00 Acute gastritis without bleeding; Z88.1 Allergy status to other antibiotic agents; Z88.2 Allergy status to sulfonamides; Z79.82 Long term (current) use of aspirin; Z79.899 Other long term (current) drug therapy
CPT/HCPCS: 36415; 74177; 80053; 80061; 81003; 81015; 83690; 85025; 87040; 87086; 96361; 96365; 96375; C9113; J0696; J1650; J1885; J2270; J2405; J2543; J2550; J3010; J3490; J7050; Q9967

== ENCOUNTER → 2022-12-24 | Day surgery (SDC) | payer MEDICARE | LOC: SPEC 10:36 | PROVIDERS: ATTEND Family Medicine | PROC: 02HV33Z Insertion of Infusion Device into Superior Vena Cava, Percutaneous Approach (ICD-10-PCS; principal; 2022-12-24) | DX: N39.0 Urinary tract infection, site not specified (principal); B96.5 Pseudomonas (aeruginosa) (mallei) (pseudomallei) as the cause of diseases classified elsewhere | CPT/HCPCS: 36569; C1751 ==

== ENCOUNTER 2023-02-11 13:50 | Outpatient (CLI) | payer MEDICARE ==
[~2023-02-11 13:50] MED LIST changes: +Iopamidol 370 76% 100 ML VIAL ONE; -Iopamidol-370 76% 500 ML 1 ML ONE
== END 2023-02-11 13:51 | disposition home or self-care (01) ==
LOC: CT 13:50
PROVIDERS: ATTEND Internal Medicine Hematology & Oncology
DX: N39.0 Urinary tract infection, site not specified (principal); N28.1 Cyst of kidney, acquired; N40.0 Benign prostatic hyperplasia without lower urinary tract symptoms; N32.89 Other specified disorders of bladder
CPT/HCPCS: 74178; 82565; Q9967